=== PATIENT | female | born 1985 | race Caucasian/White ===

== ENCOUNTER 2020-12-12 11:20 | Outpatient (REF) | payer OTHER, SELFPAY ==
--- NOTE | 2020-12-12 11:27 | XR_ITS ---
EXAMINATION: XR CHEST CLINICAL INFORMATION: Cough COMPARISON: Previous chest x-ray June 2012 TECHNIQUE: 2 views of the chest were obtained. FINDINGS: The cardiac and mediastinal contours are stable. The lungs are clear. There is no pleural effusion or pneumothorax. There is a thoracolumbar scoliosis. XR/XR chest 2V IMPRESSION: No evidence for acute disease in the chest.
== END 2020-12-12 11:21 | disposition home or self-care (01) ==
LOC: HO.XRAY 11:20
PROVIDERS: PCP Internal Medicine; Visit Provider Internal Medicine
DX: R05 Cough (principal)
CPT/HCPCS: 71046

== ENCOUNTER 2021-03-06 16:05 | Outpatient (REF) | payer OTHER, SELFPAY ==
[2021-03-09 00:07] LABS: TS Negative Control Passed; TS Panel A 0; TS Panel B 2; TS Positive Control Passed; TSpotTB Negative (SeeBelow)
== END 2021-03-06 16:06 | disposition home or self-care (01) ==
LOC: HO.LAB 16:05
PROVIDERS: PCP Internal Medicine; Visit Provider Internal Medicine
DX: Z11.1 Encounter for screening for respiratory tuberculosis (principal); Z20.820 Contact with and (suspected) exposure to varicella
CPT/HCPCS: 36415; 86481; 86787

== ENCOUNTER 2021-04-21 15:05 | Outpatient (REF) | payer OTHER, SELFPAY ==
[2021-04-21 16:51] LABS: MANUAL DIFF FLAG NO
[2021-04-21 16:54] LABS: Basophils Absolute Auto 0.1 X10*3/uL (0.0-0.2); Basophils Percent Auto 0.4 % (0-2); Eosinophils Absolute Auto 0.2 X10*3/uL (0.0-0.4); Eosinophils Percent Auto 1.8 % (0-4); Hematocrit 30.2 % (37-47); Hemoglobin 9.2 g/dl (12.0-16.0); Imm Gran Abs Auto 0.08 X10*3/uL (0.00-0.03); Imm Gran Pct Auto 0.6 % (0.0-0.4); Lymphocytes Absolute Auto 1.6 X10*3/uL (1.2-4.9); Mean Corpuscular HGB Conc 30.5 g/dl (31.0-35.0); Mean Corpuscular Hemoglobin 25.7 pg (27.0-33.0); Mean Corpuscular Volume 84.4 fL (80-98); Monocytes Absolute Auto 1.4 X10*3/uL (0.1-1.2); Neutrophils Absolute Auto 9.6 X10*3/uL (2.0-8.3); Neutrophils Percent Auto 74.2 % (45-73); Platelet Count 644 X10*3/uL (160-400); Red Blood Count 3.58 X10*6/uL (4.20-5.50); Red Cell Distribution Width 15.9 % (11.0-16.0); White Blood Count 12.9 X10*3/uL (4.8-10.8)
== END 2021-04-21 15:06 | disposition home or self-care (01) ==
LOC: HO.LAB 15:05
PROVIDERS: PCP Internal Medicine; Visit Provider Internal Medicine
DX: Z00.00 Encounter for general adult medical examination without abnormal findings (principal)
CPT/HCPCS: 36415; 85025

== ENCOUNTER → 2021-07-07 11:21 | Outpatient (BNVA) | payer OTHER, SELFPAY | PROVIDERS: PCP Internal Medicine; Visit Provider Advanced Practice Midwife ==

== ENCOUNTER 2021-07-14 07:59 | Outpatient (REF) | payer OTHER, SELFPAY | END 2021-07-14 08:00 | disposition home or self-care (01) | LOC: HO.MDS 07:59 | PROVIDERS: PCP Internal Medicine; Visit Provider Internal Medicine Medical Oncology | DX: D50.9 Iron deficiency anemia, unspecified (principal) | CPT/HCPCS: 96365 ==

== ENCOUNTER 2021-07-14 10:23 | Outpatient (REF) | payer OTHER, SELFPAY ==
--- NOTE | ~2021-07-14 | US_ITS ---
EXAMINATION: US PELVIS CLINICAL INFORMATION: This is a 36-year-old female with abnormal uterine bleeding. COMPARISON: Comparison is made to a previous study dated 09/08/2014. TECHNIQUE: Ultrasound of the pelvis is performed using both transabdominal and transvaginal transducers along with Doppler. Transvaginal imaging is performed due to inadequate visualization transabdominally. FINDINGS: Uterus: The uterus is anteverted and measures 9.3 x 5.5 x 5.2 cm. The uterus appears anteverted and anteflexed. The double wall endometrial thickness is 0.7 mm. There are multiple smoothly marginated, noncalcified, nonshadowing hypoechoic masses within the uterus consistent with uterine fibroids. 1. In the mid posterior wall measuring 0.9 x 1.0 x 0.8 cm is a probable fibroid. This may have a submucosal component. This one may have been present previously and measured 0.8 cm. 2. In the posterior fundus measuring 3.9 x 3.2 x 4.1 cm is a probable fibroid. This was on the previous study and measured 1.6 x 2.0 x 2.1 cm. There is an abnormal echogenic area within the central cervix which measures 0.8 x 0.7 x 0.8 cm. There is posterior shadowing from this area. The etiology for this abnormality is unclear. This has unusual features to suggest a uterine fibroid and less it is calcified. This was not present on the previous study. Adnexa: Both ovaries are visualized. There is normal color flow to the adnexa. There is no ovarian torsion. There is no pelvic ascites or fluid collection. Right ovary measures 3.0 x 2.0 x 2.7 cm. 8.5 Left ovary measures 2.8 x 1.8 x 2.4 cm. 6.7 US/US pelvic and transvaginal IMPRESSION: 1. There are multiple probable fibroids in the posterior wall of the uterus as described. 2. Normal ovaries. 3. There is an abnormal echogenic area with posterior shadowing in the cervix with a maximum diameter of 0.8 cm. The etiology for this abnormality is unclear. Clinical correlation is recommended.
[2021-07-14 12:42] LABS: Thyroid Stimulating Hormone 0.64 uIU/mL (0.32-4.0)
== END 2021-07-14 10:24 | disposition home or self-care (01) ==
LOC: HO.HMGCX 10:23
PROVIDERS: PCP Internal Medicine; Visit Provider Advanced Practice Midwife
DX: N92.1 Excessive and frequent menstruation with irregular cycle (principal); N93.9 Abnormal uterine and vaginal bleeding, unspecified
CPT/HCPCS: 36415; 76830; 76856; 84443

== ENCOUNTER 2021-07-21 12:43 | Outpatient (REF) | payer OTHER, SELFPAY | END 2021-07-21 12:44 | disposition home or self-care (01) | LOC: HO.MDS 12:43 | PROVIDERS: PCP Internal Medicine; Visit Provider Internal Medicine Medical Oncology | DX: D50.9 Iron deficiency anemia, unspecified (principal) | CPT/HCPCS: 96365; J2916 ==

== ENCOUNTER 2021-07-28 13:57 | Outpatient (REF) | payer OTHER, SELFPAY | END 2021-07-28 13:58 | disposition home or self-care (01) | LOC: HO.MDS 13:57 | PROVIDERS: PCP Internal Medicine; Visit Provider Internal Medicine Medical Oncology | DX: D50.9 Iron deficiency anemia, unspecified (principal) | CPT/HCPCS: 96365; J2916 ==

== ENCOUNTER 2021-08-04 12:59 | Outpatient (REF) | payer OTHER, SELFPAY ==
[2021-08-04 13:56] LABS: MANUAL DIFF FLAG NO
[2021-08-04 14:00] LABS: Basophils Percent Auto 0.4 % (0-2); Eosinophils Absolute Auto 0.4 X10*3/uL (0.0-0.4); Eosinophils Percent Auto 3.3 % (0-4); Hematocrit 37.9 % (37-47); Hemoglobin 11.5 g/dl (12.0-16.0); Imm Gran Abs Auto 0.03 X10*3/uL (0.00-0.03); Imm Gran Pct Auto 0.3 % (0.0-0.4); Lymphocytes Absolute Auto 1.6 X10*3/uL (1.2-4.9); Lymphocytes Percent Auto 14.6 % (20-40); Mean Corpuscular HGB Conc 30.3 g/dl (31.0-35.0); Mean Corpuscular Hemoglobin 23.9 pg (27.0-33.0); Mean Corpuscular Volume 78.8 fL (80-98); Mean Platelet Volume 10.1 fL (9.4-12.3); Monocytes Absolute Auto 0.8 X10*3/uL (0.1-1.2); Monocytes Percent Auto 7.1 % (2-11); Neutrophils Absolute Auto 8.2 X10*3/uL (2.0-8.3); Neutrophils Percent Auto 74.3 % (45-73); Platelet Count 305 X10*3/uL (160-400); Red Blood Count 4.81 X10*6/uL (4.20-5.50); Red Cell Distribution Width 20.3 % (11.0-16.0); White Blood Count 11.1 X10*3/uL (4.8-10.8)
== END 2021-08-04 13:00 | disposition home or self-care (01) ==
LOC: HO.MDS 12:59
PROVIDERS: PCP Internal Medicine; Visit Provider Internal Medicine Medical Oncology
DX: D50.9 Iron deficiency anemia, unspecified (principal)
CPT/HCPCS: 36415; 85025; 96365; J2916

== ENCOUNTER 2021-08-11 09:37 | Outpatient (REF) | payer OTHER, SELFPAY ==
[2021-08-11 16:16] LABS: CT PCR NOT DETECTED (Not Detect.); NG PCR NOT DETECTED (Not Detect.)
[2021-08-12 15:22] LABS: BV Int Neg Control Negative (Negative)
[2021-08-12 15:23] LABS: BV Int Pos Control Positive (Positive)
[2021-08-16 08:21] LABS: HPV mRNA E6/E7 rflx Not Detected (Not Detected)
== END 2021-08-11 09:38 | disposition home or self-care (01) ==
LOC: HO.LAB 09:37
PROVIDERS: PCP Internal Medicine; Visit Provider Advanced Practice Midwife
DX: Z01.411 Encounter for gynecological examination (general) (routine) with abnormal findings (principal); Z11.51 Encounter for screening for human papillomavirus (HPV); Z11.3 Encounter for screening for infections with a predominantly sexual mode of transmission; N93.9 Abnormal uterine and vaginal bleeding, unspecified; N88.9 Noninflammatory disorder of cervix uteri, unspecified; Z71.2 Person consulting for explanation of examination or test findings
CPT/HCPCS: 58100; 87480; 87491; 87510; 87591; 87624; 87660; 88142; 88305

== ENCOUNTER → 2021-08-23 11:43 | Outpatient (BNVA) | payer OTHER, SELFPAY | PROVIDERS: PCP Internal Medicine; Visit Provider Advanced Practice Midwife ==

== ENCOUNTER 2021-09-01 11:02 | Outpatient (REF) | payer OTHER, SELFPAY ==
--- NOTE | ~2021-09-01 | MR_ITS ---
EXAMINATION: MR PELVIS WITHOUT AND WITH CONTRAST CLINICAL INFORMATION: 36-year-old female with history of abnormal uterine bleeding. Abnormal finding of cervix on ultrasound. Uterine fibroids on ultrasound. COMPARISON: Pelvic ultrasound from 07/14/2021. TECHNIQUE: MR imaging of the pelvis was performed using standard sequences on a high-field 1.5 Christine magnet without and with intravenous administration of 9 mL Gadavist. FINDINGS: Uterus and cervix: The anteflexed, anteverted uterus measures 10 x 5.9 x 7 cm (cervix to fundus x AP x transverse dimensions). The endometrium is normal; it measures up to 0.8 cm AP. No evidence of endometrial or endocervical polyp. Multiple small cystic foci are present within the junctional zone. In the region of the posterior uterine body and fundus, the junctional zone is especially thickened (measures up to 2.6 cm maximum thickness), consistent with uterine adenomyosis. No evidence of cervical or vaginal mass. Adnexa: The ovaries are normal. Normal-sized follicles are present within each ovary. No cystic or solid ovarian lesion. Free fluid: Trace free fluid is present in the pelvis. Genitourinary: No hydroureteronephrosis. The urinary bladder and urethra are normal. Gastrointestinal: No dilated bowel loops. No inflammatory change or obstruction of the visualized bowel. The rectum is unremarkable. Abdominal wall: There appears to be postoperative scarring of the partially visualized lower abdominal wall. Lymphovascular: Unremarkable. No pathologic sized lymph nodes. Skeletal: Mild loss of height and T2 signal of the degenerated L5-S1 disc with small central disc protrusion. The visualized pelvic bones and proximal femurs have normal marrow signal. No suspicious bone lesion. No osteonecrosis. The sacroiliac joints are normal. The musculotendinous structures are unremarkable. MR/MR pelvis wo/w con IMPRESSION: * There is uterine adenomyosis. * No evidence of uterine leiomyomas. * The endometrium is normal. No evidence of endometrial or endocervical polyp. * The ovaries are normal. No evidence of endometriosis or ovarian cyst.
== END 2021-09-01 11:03 | disposition home or self-care (01) ==
LOC: HO.MRI 11:02
PROVIDERS: PCP Internal Medicine; Visit Provider Advanced Practice Midwife
DX: N88.9 Noninflammatory disorder of cervix uteri, unspecified (principal); N93.9 Abnormal uterine and vaginal bleeding, unspecified
CPT/HCPCS: 72197; A9585

== ENCOUNTER → 2021-09-12 11:20 | Outpatient (BNVA) | payer OTHER, SELFPAY | PROVIDERS: PCP Internal Medicine; Visit Provider Advanced Practice Midwife ==

== ENCOUNTER → 2021-11-15 08:59 | Outpatient (BNVA) | payer OTHER, SELFPAY | PROVIDERS: PCP Internal Medicine; Referring Provider Internal Medicine; Visit Provider Surgery | DX: R19.00 Intra-abdominal and pelvic swelling, mass and lump, unspecified site (principal) | CPT/HCPCS: 99202 ==

== ENCOUNTER → 2021-12-08 11:35 | Outpatient (BNVA) | payer OTHER, SELFPAY | PROVIDERS: PCP Internal Medicine; Visit Provider Advanced Practice Midwife ==

== ENCOUNTER → 2022-01-16 08:08 | Outpatient (BNVA) | payer OTHER, SELFPAY | PROVIDERS: Visit Provider Obstetrics & Gynecology | DX: N88.9 Noninflammatory disorder of cervix uteri, unspecified (principal); N93.9 Abnormal uterine and vaginal bleeding, unspecified | CPT/HCPCS: 99212 ==

== ENCOUNTER 2022-04-12 13:56 | Outpatient (REF) | payer OTHER, SELFPAY | END 2022-04-12 13:57 | disposition home or self-care (01) | LOC: HO.MDS 13:56 | PROVIDERS: PCP Internal Medicine; Visit Provider Internal Medicine Medical Oncology | DX: D50.9 Iron deficiency anemia, unspecified (principal); N80.0 Endometriosis of uterus | CPT/HCPCS: 96365; J2916 ==

== ENCOUNTER 2022-04-18 12:06 | Outpatient (REF) | payer OTHER, SELFPAY | END 2022-04-18 12:07 | disposition home or self-care (01) | LOC: HO.MDS 12:06 | PROVIDERS: PCP Internal Medicine; Visit Provider Internal Medicine Medical Oncology | DX: D50.9 Iron deficiency anemia, unspecified (principal) | CPT/HCPCS: 96365; J2916 ==

== ENCOUNTER → 2022-04-25 13:23 | Outpatient (BNVA) | payer OTHER, SELFPAY | PROVIDERS: PCP Internal Medicine; Visit Provider Advanced Practice Midwife | DX: Z30.09 Encounter for other general counseling and advice on contraception (principal); N92.0 Excessive and frequent menstruation with regular cycle | CPT/HCPCS: 99212 ==

== ENCOUNTER 2022-04-26 10:24 | Outpatient (REF) | payer OTHER, SELFPAY | END 2022-04-26 10:25 | disposition home or self-care (01) | LOC: HO.MDS 10:24 | PROVIDERS: PCP Internal Medicine; Visit Provider Internal Medicine Medical Oncology | DX: D50.9 Iron deficiency anemia, unspecified (principal) | CPT/HCPCS: 96365; J2916 ==

== ENCOUNTER 2022-05-03 10:06 | Outpatient (REF) | payer OTHER, SELFPAY ==
[2022-05-03 11:13] LABS: MANUAL DIFF FLAG NO
[2022-05-03 11:14] LABS: Basophils Percent Auto 0.5 % (0-2); Eosinophils Absolute Auto 0.3 X10*3/uL (0.0-0.4); Eosinophils Percent Auto 5.4 % (0-4); Hematocrit 40.4 % (37.0-47.0); Hemoglobin 12.5 g/dl (12.0-16.0); Imm Gran Abs Auto 0.01 X10*3/uL (0.00-0.03); Imm Gran Pct Auto 0.2 % (0.0-0.4); Lymphocytes Absolute Auto 2.5 X10*3/uL (1.2-4.9); Lymphocytes Percent Auto 40.4 % (20-40); Mean Corpuscular HGB Conc 30.9 g/dl (31.0-35.0); Mean Corpuscular Hemoglobin 26.7 pg (27.0-33.0); Mean Corpuscular Volume 86.3 fL (80.0-98.0); Monocytes Absolute Auto 0.5 X10*3/uL (0.1-1.2); Monocytes Percent Auto 7.6 % (2-11); Neutrophils Absolute Auto 2.8 x10*3/uL (2.0-8.3); Neutrophils Percent Auto 45.9 % (45-73); Platelet Count 256 X10*3/uL (160-400); Red Blood Count 4.68 X10*6/uL (4.20-5.50); Red Cell Distribution Width 14.5 % (11.0-16.0); White Blood Count 6.2 X10*3/uL (4.8-10.8)
== END 2022-05-03 10:07 | disposition home or self-care (01) ==
LOC: HO.MDS 10:06
PROVIDERS: PCP Internal Medicine; Visit Provider Internal Medicine Medical Oncology
DX: D50.9 Iron deficiency anemia, unspecified (principal)
CPT/HCPCS: 36415; 85025; 96365; J2916

== ENCOUNTER 2022-07-13 14:03 | Outpatient (REF) | payer OTHER, SELFPAY ==
[2022-07-13 21:35] LABS: CT PCR NOT DETECTED (Not Detect.); NG PCR NOT DETECTED (Not Detect.)
== END 2022-07-13 14:04 | disposition home or self-care (01) ==
LOC: HO.LAB 14:03
PROVIDERS: Visit Provider Advanced Practice Midwife
DX: Z30.430 Encounter for insertion of intrauterine contraceptive device (principal); N93.9 Abnormal uterine and vaginal bleeding, unspecified
CPT/HCPCS: 58300; 87491; 87591; J7298

== ENCOUNTER 2022-08-02 08:17 | Emergency (ER) | payer OTHER, SELFPAY ==
[2022-08-02 08:19] VITALS: BP 137/76; PULSE 91; RESP 18; TEMP 36.9; O2SAT 100; BMI 31.6
--- NOTE | 2022-08-02 08:41 | ED.SKABFB ---
HPI - Skin/Abscess/Foreign Bdy General Chief complaint: Skin/Abscess/Foreign Body Stated complaint: Cyst on belly button Time Seen by Provider: 08/02/22 08:27 Source: patient Mode of arrival: ambulatory Limitations: no limitations History of Present Illness HPI narrative: 37 yo female with hx of abdominoplasty 1 year ago prior infected seroma that drained on its own and responded to abx. She had this done in [place]. Comes in noting pustule in belly button and erythema above umbilicus. No fevers, vomiting. MD complaint: rash, abscess/boil and lesion Onset (ago): day(s) (1) Tetanus up to date: yes Location: generalized (abdomen) Severity: mild Quality: dull Relieving factors: none Exacerbating factors: palpation Context: other (hx of similar episodes in past) Associated symptoms: denies other symptoms Treatments prior to arrival: none Related Data Previous Rx's Medication Instructions Recorded diphenhydramine HCl 25 mg capsule 25 mg PO BEDTIME #60 caps 09/11/21 (Benadryl) albuterol sulfate 90 mcg/actuation 2 puff inhalation Q4-6H PRN 01/01/22 aerosol inhaler (Ventolin HFA) shortness of breath or wheezing #8.5 grams cromolyn 4 % eye drops 1 drp ophthalmic (eye) QID PRN 02/27/22 itching #10 mL tobramycin 0.3 % eye drops (Tobrex) 1 drp ophthalmic (eye) Q4H #5 mL 05/02/22 fluticasone propionate 44 1 puff inhalation BID 30 days 06/25/22 mcg/actuation HFA aerosol inhaler #10.6 grams (Flovent HFA) fluticasone propionate 50 1 spray intranasal DAILY #100 mL 06/25/22 mcg/actuation nasal spray,suspension (Flonase Allergy Relief) cetirizine 10 mg tablet (Zyrtec) 10 mg PO DAILY PRN allergy 07/09/22 symptoms #30 tabs cephalexin 500 mg capsule 500 mg PO TID 7 days #21 caps 08/02/22 doxycycline monohydrate 100 mg 100 mg PO BID 7 days #14 tabs 08/02/22 tablet Allergies Allergy/AdvReac Type Severity Reaction Status Date / Time eggplant [EGGPLANT] Allergy Severe HIVES Verified 07/13/22 13:44 latex [LATEX] Allergy Intermediate RASH Verified 07/13/22 13:44 Review of Systems Review of Systems: Constitutional : No Fever, No Chills ENT/Mouth : No sore throat, No Rhinorrhea Eyes: No Eye Pain, No Swelling, No Redness Cardiovascular : No Chest Pain, No SOB Respiratory : No Cough, No Sputum Gastrointestinal : No Nausea, No Vomiting, No Diarrhea, No abdominal Pain Genitourinary : No Dysuria, No Hematuria Musculoskeletal : No joint pain, No Myalgias, No Joint Swelling Skin : No Skin Lesions, positive skin rash Neuro : No Weakness, No Numbness, No Headache PMFSH Past Medical History Attestation statement: The following information was validated with the patient. Medical History Adenomyosis of uterus Anemia Asthma Elevated BP without diagnosis of hypertension Obesity Obesity Surgical History History of abdominoplasty History of tubal ligation Family History Family History Mother Diabetes High cholesterol Hypertension Father No problems noted. Son High cholesterol Social History Social History Household Members: Children Housing: House Are you a primary physician assistant primary care to a significant other at home: No Do you presently have visiting nurse or other home services: No Alcohol intake: current Alcohol intake frequency: holidays/special occasions only Patient Tobacco Use Status: Former Tobacco user Tobacco use type: Cigarette e-Cigarette/Vaping Use: Never Used Second Hand Smoke Exposure: No Advance Directives: No service: No Current occupational status: employed Current occupation: [employer] [place] Cognitive needs: No Hearing needs: No Vision needs: Yes Physical Exam Vital Signs: Vital Signs: Last Vital Signs Temp 98.4 F 08/02/22 08:19 Pulse 91 08/02/22 08:19 Resp 18 08/02/22 08:19 BP 137/76 08/02/22 08:19 Pulse Ox 100 08/02/22 08:19 O2 Del Method 08/02/22 08:19 BMI result Body Mass Index 31.6 Appearance: Alert. Oriented X3. No acute distress. Eyes: Pupils equal, round and reactive to light. ENT: Pharynx normal. Neck: Normal inspection. Neck supple. CVS: Normal heart rate and rhythm. Pulses normal. Respiratory: No respiratory distress. Breath sounds normal. Abdomen: Soft and non-tender. small 1cm pustule to a point in umbilicus erythema above belly button very mild Skin: Skin warm and dry. Normal skin color. Normal skin turgor. Extremities: No lower extremity edema. Neuro: Oriented X 3. No motor deficit. No sensory deficit. Course Course Course Narrative: abscess that she popped herself in the ED - patient expressed it herself and wants to leave MDM - Skin/Abscess/Foreign Bdy MDM Narrative Medical decision making narrative: 37 yo female prior abdominoplasty here with c/o pustule in abdomen along with mild erythema above area will start on oral abx and wolfgang pustule suspect another seroma with mild infectino has no systemic symptoms. Can monitor at home, has done well in past with similar presentation with oral antibiotics. Discharge Plan Discharge Clinical Impression: Cellulitis Qualifiers: Site of cellulitis: trunk Site of cellulitis of trunk: abdominal wall Qualified Code(s): L03.311 - Cellulitis of abdominal wall Abscess of skin or subcutaneous tissue Qualifiers: Site of cutaneous abscess: trunk Site of cutaneous abscess of trunk: abdominal wall Qualified Code(s): L02.211 - Cutaneous abscess of abdominal wall Patient Disposition: Home, Self-Care Instructions: Cellulitis (ED), Abscess (ED) Additional Instructions: return to ED for any worsening symptoms or concerns return if no improvemet, fevers, increased redness or swelling Prescriptions: New cephalexin 500 mg capsule 500 mg PO TID 7 Days Qty: 21 0RF doxycycline monohydrate 100 mg tablet 100 mg PO BID 7 Days Qty: 14 0RF No Action diphenhydramine HCl [Benadryl] 25 mg capsule 25 mg PO BEDTIME Qty: 60 1RF albuterol sulfate [Ventolin HFA] 90 mcg/actuation HFA aerosol inhaler 2 puff inhalation Q4-6H PRN (Reason: shortness of breath or wheezing) Qty: 8.5 8RF cromolyn 4 % drops 1 drp ophthalmic (eye) QID PRN (Reason: itching) Qty: 10 0RF tobramycin [Tobrex] 0.3 % drops 1 drp ophthalmic (eye) Q4H Qty: 5 0RF fluticasone propionate [Flonase Allergy Relief] 50 mcg/actuation spray,suspension 1 spray intranasal DAILY Qty: 100 0RF Rx Instructions: administer into each nostril Flovent HFA 44 mcg/actuation HFA aerosol inhaler 1 puff inhalation BID 30 Days Qty: 10.6 2RF Rx Instructions: administer with spacer cetirizine [Zyrtec] 10 mg tablet 10 mg PO DAILY PRN (Reason: allergy symptoms) Qty: 30 2RF Stand Alone Forms: Work/School Release
[2022-08-02] MEDS: Lidocaine 4 % Cream KIT 1 APPL TOPICAL (09:16)
[2022-08-02] MEDS: Ondansetron ODT 4 MG TAB.RAPDIS TRANSLINGU (09:16)
[2022-08-02] MEDS: cephALEXin 500 MG CAPSULE PO (09:19)
== END 2022-08-02 11:15 | disposition home or self-care (01) ==
PROVIDERS: Emergency Provider Emergency Medicine; PCP Internal Medicine
DX: L03.311 Cellulitis of abdominal wall (principal); L02.211 Cutaneous abscess of abdominal wall; Z87.891 Personal history of nicotine dependence; Z79.899 Other long term (current) drug therapy
CPT/HCPCS: 99283

== ENCOUNTER → 2022-09-17 15:26 | Outpatient (BNVA) | payer OTHER, SELFPAY | PROVIDERS: PCP Internal Medicine; Visit Provider Internal Medicine | DX: J45.909 Unspecified asthma, uncomplicated (principal) | CPT/HCPCS: 99202 ==

== ENCOUNTER → 2022-10-03 10:42 | Outpatient (BNVA) | payer OTHER, SELFPAY | PROVIDERS: PCP Internal Medicine; Visit Provider Advanced Practice Midwife | DX: Z30.431 Encounter for routine checking of intrauterine contraceptive device (principal) | CPT/HCPCS: 99212 ==

== ENCOUNTER 2022-10-07 10:55 | Emergency (ER) | payer OTHER, SELFPAY ==
--- NOTE | 2022-10-07 11:17 | ED.BACK ---
HPI - Back Pain/Injury General Chief Complaint: Back Pain/Injury Stated Complaint: Back pain Time Seen by Provider: 10/07/22 11:16 Source: patient Mode of arrival: ambulatory Limitations: no limitations History of Present Illness HPI Narrative: 37 yo female with history of anemia, asthma, allergic rhinitis, obesity who presents to the ER for evaluation of right lower back pain that started yesterday. She reports the pain is in her right lower back and buttocks that radiates to her right hip and pelvis, it also radiates down her right buttock and down her leg. She had also has tingling of her leg as well. She denies any bowel or bladder incontinence. No saddle paresthesias. No injury or fall. She has never had pain like this before. She states it started when she was sitting on the couch watching Netflix. It is worse with position changes and palpation. She has taken Motrin with improvement in the pain. MD elicited complaint: back pain Onset (ago): day(s) (1) Timing: constant Severity: severe Similar Symptoms Previously: No Quality: sharp and spasming Location: right lower back Radiation: groin, buttocks and right upper leg Exacerbating factors: movement Relieving factors: immobilization, medication and sitting upright Context: unknown Associated symptoms: parasthesias Treatments prior to arrival: NSAIDS Work related injury: No Related Data Home Medications Medication Instructions Recorded Confirmed levonorgestrel 20 mcg/24 hours (8 0 device intrauterine 09/17/22 yrs) 52 mg intrauterine device (Mirena) prednisolone acetate 1 % eye 1 drp ophthalmic (eye) BID 09/17/22 10/04/22 drops,suspension Previous Rx's Medication Instructions Recorded diphenhydramine HCl 25 mg capsule 25 mg PO BEDTIME #60 caps 09/11/21 (Benadryl) fluticasone propionate 44 1 puff inhalation BID 30 days 06/25/22 mcg/actuation HFA aerosol inhaler #10.6 grams (Flovent HFA) fluticasone propionate 50 1 spray intranasal DAILY #100 mL 06/25/22 mcg/actuation nasal spray,suspension (Flonase Allergy Relief) cetirizine 10 mg tablet (Zyrtec) 10 mg PO DAILY PRN allergy 08/27/22 symptoms #30 tabs albuterol sulfate 90 mcg/actuation 2 puff inhalation Q4-6H PRN 09/10/22 aerosol inhaler (Ventolin HFA) shortness of breath or wheezing #8.5 grams montelukast 10 mg tablet 10 mg PO BEDTIME #30 tabs 09/19/22 (Singulair) cyclobenzaprine 10 mg tablet 10 mg PO TID PRN muscle spasm #14 10/07/22 tabs lidocaine 5 % topical patch 1 patch topical DAILY #15 ea 10/07/22 prednisone 20 mg tablet 40 mg PO DAILY #10 tabs 10/07/22 Allergies Allergy/AdvReac Type Severity Reaction Status Date / Time eggplant [EGGPLANT] Allergy Severe HIVES Verified 10/03/22 10:53 latex [LATEX] Allergy Intermediate RASH Verified 10/03/22 10:53 Review of Systems Review of Systems: Constitutional: No Fever, No Chills ENT/Mouth: No sore throat, No Rhinorrhea Cardiovascular: No Chest Pain, No SOB Respiratory: No Cough, No Sputum Gastrointestinal: No Nausea, No Vomiting, No Diarrhea, No abdominal Pain Genitourinary: No Dysuria, No Urinary Frequency, No Hematuria, no urinary incontinence Musculoskeletal: + joint pain, +Myalgias Skin: No Skin Lesions, No rash Neuro: No Weakness, No Numbness, No Dizziness, No Headache Heme/Lymph: No Bruising, No Lymphadenopathy PMFSH Past Medical History Medical History Adenomyosis of uterus Anemia Asthma Asthma Elevated BP without diagnosis of hypertension Obesity Obesity Surgical History History of abdominoplasty History of tubal ligation Family History Family History Mother Diabetes High cholesterol Hypertension Father No problems noted. Son High cholesterol Social History Social History Household Members: Children Housing: House Are you a primary manager urgent care to a significant other at home: No Do you presently have visiting nurse or other home services: No Alcohol intake: current Alcohol intake frequency: holidays/special occasions only Patient Tobacco Use Status: Former Tobacco user Tobacco use type: Cigarette e-Cigarette/Vaping Use: Never Used Second Hand Smoke Exposure: No Advance Directives: No Advance Directives Information Provided: No service: No Current occupational status: employed Current [place]: [employer] [place] Cognitive needs: No Hearing needs: No Vision needs: Yes Physical Exam Vital Signs: Vital Signs: Last Vital Signs Temp 98.2 F 10/07/22 11:25 Pulse 83 10/07/22 11:25 Resp 14 10/07/22 11:25 BP 113/63 10/07/22 11:25 Pulse Ox 96 10/07/22 11:25 O2 Del Method 10/07/22 11:25 BMI result Body Mass Index 29.9 Appearance: Alert. Oriented X3. No acute distress. HEENT: normal inspection CVS: Normal heart rate and rhythm. Pulses normal. Respiratory: No respiratory distress. Skin: Skin warm and dry. Normal skin color. Normal skin turgor. No rashes. Back: Normal inspection. Soft tissue tenderness of the middle and lower lumbar area with SI joint tenderness as well. Positive straight leg raise test. Extremities: Normal inspection, normal range of motion of the hips and knees. Neuro: Oriented X 3. No motor deficit. No sensory deficit. Steady gait. DTRs intact Course Course Course Narrative: 37-year-old female presenting to the ER with nontraumatic right lower back pain that radiates to her groin, buttocks and right leg. Clinical exam and presentation are consistent with lumbar radiculopathy possible muscle strain and spasm. Will treat accordingly with steroids, muscle relaxers and lidocaine. Will provide lower back exercises to help alleviate the pain as well. Work note provided per request. Stable for discharge home. She will follow-up with her PCP for further management. Discharge Plan Discharge Clinical Impression: Low back pain, Acute lumbar radiculopathy Patient Disposition: Home, Self-Care Instructions: Lumbar Radiculopathy (ED), Lower Back Exercises (ED) Additional Instructions: No bending, lifting or twisting. Use ice several times per day for 20 minutes at a time for the next 48 hours and then change to heat. Take medications as prescribed to help with pain and discomfort. Follow up with your Primary Care Doctor this week. If your pain worsens, if you develop new numbness, tingling, weakness, loss of function or incontinence call 911 or come back to the ER right away for evaluation. Prescriptions: New cyclobenzaprine 10 mg tablet 10 mg PO TID PRN (Reason: muscle spasm) Qty: 14 0RF lidocaine 5 % adhesive patch,medicated 1 patch topical DAILY Qty: 15 0RF Rx Instructions: leave on most painful area for up to 12 hrs prednisone 20 mg tablet 40 mg PO DAILY Qty: 10 0RF No Action diphenhydramine HCl [Benadryl] 25 mg capsule 25 mg PO BEDTIME Qty: 60 1RF fluticasone propionate [Flonase Allergy Relief] 50 mcg/actuation spray,suspension 1 spray intranasal DAILY Qty: 100 0RF Rx Instructions: administer into each nostril Flovent HFA 44 mcg/actuation HFA aerosol inhaler 1 puff inhalation BID 30 Days Qty: 10.6 2RF Rx Instructions: administer with spacer cetirizine [Zyrtec] 10 mg tablet 10 mg PO DAILY PRN (Reason: allergy symptoms) Qty: 30 2RF albuterol sulfate [Ventolin HFA] 90 mcg/actuation HFA aerosol inhaler 2 puff inhalation Q4-6H PRN (Reason: shortness of breath or wheezing) Qty: 8.5 0RF montelukast [Singulair] 10 mg tablet 10 mg PO BEDTIME Qty: 30 2RF prednisolone acetate 1 % drops,suspension 1 drp ophthalmic (eye) BID Mirena 20 mcg/24 hours (8 yrs) 52 mg intrauterine device 0 device intrauterine Referrals: Osmany Grimes MD [Primary Care Provider] - Stand Alone Forms: Work/School Release
[2022-10-07 11:25] VITALS: BP 113/63; PULSE 83; RESP 14; TEMP 36.8; O2SAT 96; BMI 29.9
== END 2022-10-07 11:47 | disposition home or self-care (01) ==
PROVIDERS: Emergency Provider Emergency Medicine Emergency Medical Services; PCP Internal Medicine
DX: M54.16 Radiculopathy, lumbar region (principal); Z87.891 Personal history of nicotine dependence; Z79.899 Other long term (current) drug therapy
CPT/HCPCS: 99282; 99283

== ENCOUNTER 2022-10-08 14:51 | Outpatient (REF) | payer OTHER, SELFPAY ==
--- NOTE | 2022-10-08 17:14 | PFT_ITS ---
INDICATION: Dyspnea. SPIROMETRY: The FEV1 to FVC of 72% with an FEV1 of 2.27 L, which is 70% predicted and an FVC of 3.16 L, which is 82% predicted. The patient did have a significant response to bronchodilators noted. There was also significant small airways disease with a [id number] of 41% predicted. The maximum voluntary ventilation is 68% predicted. LUNG VOLUMES: Total lung capacity 91% predicted with a residual volume 127% predicted. DIFFUSION CAPACITY: DLCO 100% predicted. COMPARISONS: None. INTERPRETATION: No definitive obstructive nor restrictive ventilatory defects. Although on the flow volume loop, appears to have a concavity given the expiratory limb and a decreased FEV1 to FVC suggesting some obstructive physiology. The patient did have a significant response to bronchodilators noted and also significant small airways disease bring up the question of underlying asthma. There is also a mild to moderate decrease in maximum voluntary ventilation secondary to deconditioning and also worsening dynamic inspiratory capacity. Lung volumes show significant air trapping and diffusion capacity within normal limits. COMPARISONS: None. INTERPRETATION: There is an obstructive physiology suggestive of uncontrolled asthma or small airways disease with a significant response to bronchodilators noted. There is significant air trapping due to small airways disease and a normal diffusion capacity. Now if asthma is still in the differential, methacholine challenge may be helpful in assessing for hyper-reactive airways. Otherwise clinical correlation warranted. Trevon Angel MD MR/MODL / [id number]
== END 2022-10-08 14:52 | disposition home or self-care (01) ==
LOC: HO.RESP 14:51
PROVIDERS: PCP Internal Medicine; Visit Provider Internal Medicine
DX: J45.909 Unspecified asthma, uncomplicated (principal)
CPT/HCPCS: 94060; 94727; 94729

== ENCOUNTER → 2022-10-29 10:51 | Outpatient (BNVA) | payer OTHER, SELFPAY | PROVIDERS: PCP Internal Medicine; Visit Provider Internal Medicine | DX: J45.909 Unspecified asthma, uncomplicated (principal); J30.9 Allergic rhinitis, unspecified; Z79.899 Other long term (current) drug therapy | CPT/HCPCS: 99212 ==

== ENCOUNTER → 2023-02-28 15:39 | Outpatient (BNVA) | payer OTHER, SELFPAY | PROVIDERS: PCP Internal Medicine; Visit Provider Internal Medicine | DX: J45.909 Unspecified asthma, uncomplicated (principal) | CPT/HCPCS: 99212 ==

== ENCOUNTER 2023-08-29 15:51 | Outpatient (AMB) | payer OTHER, SELFPAY ==
[2023-08-29 15:58] VITALS: BP 120/68; PULSE 78; O2SAT 99
--- NOTE | 2023-08-29 15:58 | MHC.OFFVIS ---
Intake Vital Signs 08/29/23 15:58 Weight 184 lb 1.376 oz BP 120/68 Blood Pressure Location Lt brachial Position Sitting Pulse 78 Pulse Source Pulse Oximeter Pulse Oximetry (%) 99 Oxygen Delivery Method Room Air Intake Visit Reasons: Asthma Allergies eggplant [EGGPLANT] Allergy (Severe, Verified 08/29/23 16:02) HIVES latex [LATEX] Allergy (Intermediate, Verified 08/29/23 16:02) RASH eggs Allergy (Intermediate, Uncoded 08/29/23 16:02) abdominal pian Medication List - Last Reconciled 08/29/23 by Shahida Haines MD albuterol sulfate 90 mcg/actuation (Ventolin HFA) 2 puffs inhalation Q4-6H PRN cetirizine 10 mg PO DAILY PRN cyclobenzaprine 10 mg PO TID PRN fluticasone propionate 50 mcg/actuation (Flonase Allergy Relief) 1 spray intranasal DAILY fluticasone propionate 110 mcg/actuation (Flovent HFA) 2 puffs inhalation BID 30 days levonorgestrel (Mirena) 0 device intrauterine montelukast 10 mg PO BEDTIME Do you need a note to return to daycare/school/sports/work: No HPI Asthma HPI Details This 38 years old female is here for 6 months follow-up for her allergic rhinitis and bronchial asthma. She is doing very well on the current regimen. The only thing is her insurance would not cover Flovent and she is looking for an alternate agent. She still has cats at home but do not let them sleep in the bedroom. Nasal congestion is minimal. She hardly has any wheezes. [facility] Medical History Asthma Elevated BP without diagnosis of hypertension Obesity Adenomyosis of uterus Obesity Asthma Anemia Surgical History History of abdominoplasty History of tubal ligation Family History Mother Diabetes High cholesterol Hypertension Father No problems noted. 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 Cognitive needs: No Hearing needs: No Vision needs: Yes Female Reproductive History Menstrual Age of Menarche: 13 Review of Systems Const All systems reviewed & are unremarkable except as noted in HPI and below Eyes Reports no additional complaints ENT Reports nasal congestion and Reports nasal discharge Card Reports no additional complaints Resp Reports as per HPI GI Reports no additional complaints Reports no additional complaints Musc Reports no additional complaints Skin/Breast Reports system reviewed and no additional complaints, except as documented Neuro Reports no additional complaints Psych Reports no additional complaints Physical Exam Vital Signs: Last Vital Signs Pulse 78 08/29/23 15:58 BP 120/68 08/29/23 15:58 Pulse Ox 99 08/29/23 15:58 Oxygen Delivery Method Room Air 08/29/23 15:58 Const General: healthy appearing (Except for being overweight), comfortable, no acute distress, alert and awake Orientation/consciousness: patient oriented x3 HEENT Head: Yes normal to inspection General nose exam: No nasal polyps present, No nasal discharge present and Abnormal mucous membranes and turbinates present (As moderate hypertrophy of the inferior and middle turbinates) Face and sinus: Yes sinuses nontender Mouth: oropharynx normal Throat: Yes posterior oropharynx normal Eyes General: appearance normal, both eyes and all related structures Neck Neck: Yes normal visual inspection, Yes no lymphadenopathy, Yes trachea midline and Yes no JVD Thyroid: Thyroid normal Chest Chest palpation & inspection: normal inspection of the chest, normal palpation of entire chest wall and no tenderness Resp Other: Percussion note resonant. Has good breath sounds on both sides. There are no wheezes or crepitations. Cardio Palpation: normal PMI Rate: regular rate Rhythm: regular rhythm Heart sounds: no gallops and no murmurs Peripheral pulses: Peripheral pulses 2+ throughout GI Palpation (GI): Soft to palpation, nontender, No hepatosplenomegaly present and no masses Auscultation: normal bowel sounds Back/Spine/Pelvis Thoracic/Lumbar Spine: thoracic and lumbar spine normal to inspection Skin General skin exam: no rashes or lesions noted Neuro General: patient oriented x3 and no focal motor deficits Cranial nerves: Yes CN's II-XII intact bilaterally Extrem General: Yes normal to inspection, Yes no clubbing, cyanosis or edema and Yes no calf tenderness Psych Appearance: grossly normal and well kempt Speech and movement: Normal speech and movement present Assessment & Plan Assessment & Plan (1) Asthma: Comment: Bronchial asthma, mild to moderate, persistent, most likely allergic. One of the main triggers is domestic CATs . Patient educated about the management of bronchial asthma, Educated about avoidance of the triggers. TX : Flovent is changed to QVAR -40 2 puffs BID Continue MONTELUKAST 10 mg daily Use Proair 2 puffs Q 4-6 hours p.r.n., but sparingly. Code(s): J45.909 - Unspecified asthma, uncomplicated (2) Allergic rhinitis: Comment: Chronic allergic rhinitis, around the year , worsening with seasonal changes. TX : Continue Flonase 2 spray each nostril daily. Use Zyrtec 10 mg once a day p.r.n.. ( prescription sent ) Montelukast 10 mg daily Code(s): J30.9 - Allergic rhinitis, unspecified Medications: New beclomethasone dipropionate 40 mcg/actuation (Qvar RediHaler) 2 inhalations inhalation BID 10.6 grams 5RF asthma 30 days albuterol sulfate 90 mcg/actuation 2 puffs inhalation Q4-6H PRN 8.5 grams 3RF shortness of breath or wheezing 30 days Coding Level of Care Code Est Pt Level 3 (67519) Diagnoses Asthma J45.909 Allergic rhinitis J30.9
== END 2023-08-29 16:10 | disposition home or self-care (01) ==
PROVIDERS: PCP Internal Medicine; Visit Provider Internal Medicine
DX: J45.909 Unspecified asthma, uncomplicated (principal); J30.9 Allergic rhinitis, unspecified
CPT/HCPCS: 99213

== ENCOUNTER → 2023-08-29 15:51 | Outpatient (BNVA) | payer OTHER, SELFPAY | PROVIDERS: PCP Internal Medicine; Visit Provider Internal Medicine ==

== ENCOUNTER 2023-12-17 12:52 | Outpatient (AMB) | payer OTHER, SELFPAY ==
[2023-12-17 12:54] VITALS: BP 122/78; PULSE 80; O2SAT 99; BMI 30.4
--- NOTE | 2023-12-17 12:54 | MHC.PC.OV ---
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 per policy Accompanied by: Self / Same As Patient Allergies eggplant [EGGPLANT] Allergy (Severe, Verified 12/17/23 12:54) HIVES latex [LATEX] Allergy (Intermediate, Verified 12/17/23 12:54) RASH eggs Allergy (Intermediate, Uncoded 12/17/23 12:54) abdominal pian Medication List - Last Reconciled 12/17/23 by Osmany Grimes MD albuterol sulfate 90 mcg/actuation (Ventolin HFA) 2 puffs inhalation Q4-6H PRN albuterol sulfate 90 mcg/actuation 2 puffs inhalation Q4-6H PRN 30 days beclomethasone dipropionate 40 mcg/actuation (Qvar RediHaler) 2 inhalations inhalation BID 30 days cetirizine 10 mg PO DAILY PRN cyclobenzaprine 10 mg PO TID PRN fluticasone propionate 50 mcg/actuation (Flonase Allergy Relief) 1 spray intranasal DAILY fluticasone propionate 110 mcg/actuation (Flovent HFA) 2 puffs inhalation BID 30 days levonorgestrel (Mirena) 0 device intrauterine montelukast 10 mg PO BEDTIME Tobacco use date assessed: 12/17/23 Dental Screening Dental Screen Date: 12/17/23 Did you have a dental visit in the last 12 months?: Yes Did you have a dental problem in the last 6 months where you did not have access to dental care?: No Was dental information given to patient?: Patient has dentist HPI physical HPI Details mild asthma controlled [facility] Medical History Asthma Elevated BP without diagnosis of hypertension Obesity Adenomyosis of uterus Obesity Asthma Anemia Surgical History History of abdominoplasty History of tubal ligation Family History Mother Diabetes High cholesterol Hypertension Father No problems noted. 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 1. Little interest or pleasure in doing things: not at all 2. Feeling down, depressed, or hopeless: not at all 3. Trouble falling or staying asleep, or sleeping too much: not at all 4. Feeling tired or having little energy: not at all 5. Poor appetite or overeating: not at all 6. Feeling bad about yourself - or that you are a failure or have let yourself or your family down: not at all 7. Trouble concentrating on things, such as reading the newspaper or watching television: not at all 8. Moving or speaking so slowly that other people could have noticed. Or the opposite - being so fidgety or restless that you have been moving around a lot more than usual: not at all 9. Thoughts that you would be better off or of hurting yourself in some way: not at all Total score: 0 Depression Screening Interpretation: Negative Depression Screening Done: Yes 68139 - PHQ-9 Billing: Yes Source: Developed by Drs. Vikas Khan, Becky Carrion, Robert Hernandez and colleagues, with an educational caren from [employer]. Thrive Questionnaire Date Thrive assessed: 12/17/23 I am a: Patient What is your living situation today?: I have a steady place to live Within the past 12 months, did the food you bought not last and you didn't have the money to get more?: Never true Within the past 12 months, did you worry whether your food would run out before you got money to buy more?: Never true Do you have trouble paying for medicines?: No Do you have trouble getting transportation to medical appointments?: No Do you have trouble paying your heating and electricity bill?: No Do you have trouble taking care of your child, family member or friend?: No Do you have trouble with day-to-day activities such as bathing, preparing meals, shopping, managing finances, etc.?: No Are you currently unemployed and looking for a job?: No Are you interested in more education?: No Please select the resources that you would like help with: None THRIVE Score: 0 AUDIT C Alcohol Use Questionnaire (AUDIT-C) 1. How often do you have a drink containing alcohol?: Never Total Score: 0 MATEUSZ-7 AMB Questionnaire MATEUSZ-7 Date MATEUSZ - 7 assessed: 12/17/23 Feeling nervous, anxious, or on edge: 0 = Not at all Not being able to stop or control worryin = Not at all Worrying too much about different things: 0 = Not at all Trouble relaxin = Not at all Being so restless that it is hard to sit still: 0 = Not at all Becoming easily annoyed or irritable: 0 = Not at all Feeling afraid as if something awful might happen: 0 = Not at all Total AMTEUSZ-7 score (0-4 normal; 5-9 mild; 10-14 moderate; 15-21 severe): 0 Source: Developed by Drs. Vikas Khan, Becky Carrion, Robert Hernandez and colleagues, with an educational caren from [employer]. MATEUSZ-7 Assessment Billing MATEUSZ-7 Assessment Tool: MATEUSZ-7 Assessment 96851 Review of Systems Const Denies chills, Denies fatigue, Denies headache(s) and Denies weight loss Eyes Denies change in vision, Denies diplopia and Denies eye pain ENT Denies vertigo, Denies dizziness, Denies headache(s) and Denies nasal discharge Card Denies chest pain, Denies rapid heart rate and Denies dyspnea on exertion Resp Denies chest congestion, Denies cough, Denies pain with cough and Denies dyspnea on exertion GI Denies abdominal pain, Denies hematochezia and Denies change in bowel habits Musc Denies myalgias, Denies arthralgias and Denies joint swelling Skin/Breast Denies lesions and Denies unusual bruising Neuro Denies vertigo, Denies dizziness, Denies headache(s) and Denies focal weakness Endo Denies fatigue Physical exam (Primary Care) Vital Signs: Last Vital Signs Pulse 80 12/17/23 12:54 BP 122/78 12/17/23 12:54 Pulse Ox 99 12/17/23 12:54 Oxygen Delivery Method Room Air 12/17/23 12:54 BMI result Body Mass Index 30.4 Tobacco/Smoking Status: Tobacco use Status Tobacco use date assessed 12/17/23 12/17/23 12:55 Patient Tobacco Use Status Former Tobacco user 12/17/23 12:55 Tobacco use type Cigarette 12/17/23 12:55 e-Cigarette/Vaping Use Never Used 12/17/23 12:55 PHQ-9: PHQ-9 Score PHQ-9: Total score 0 12/17/23 12:55 Depression Screening Interpretation: Negative Thrive Assessment: Date of Thrive Assessment Date Thrive assessed 12/17/23 12/17/23 12:55 Const General: cooperative, healthy appearing and no acute distress Orientation/consciousness: oriented to person, oriented to place and oriented to time HENMT Head: Yes normal to inspection, Yes normocephalic and Yes atraumatic Mouth: Normal oral and palatal mucosa present and tongue normal Throat: Yes posterior oropharynx normal and Yes uvula midline Eyes General: appearance normal, both eyes and all related structures Neck Neck: Yes normal visual inspection, Yes full ROM and Yes no lymphadenopathy Thyroid: Thyroid normal Carotids: normal carotid upstroke Chest Chest palpation & inspection: normal inspection of the chest Resp Effort & Inspection: normal respiratory effort and able to speak in complete sentences Auscultation: clear to auscultation bilaterally Cardio Jugular venous distension: no JVD Palpation: normal PMI Rate: regular rate Rhythm: regular rhythm Heart sounds: S1 normal heart sound present and S2 normal heart sound present GI Inspection: Yes normal to inspection Palpation (GI): Soft to palpation and No hepatosplenomegaly present Auscultation: normal bowel sounds General: Yes no CVA tenderness Back/Spine/Pelvis Back: no CVA tenderness Skin General skin exam: no rashes or lesions noted Neuro General: oriented to person, oriented to place and oriented to time Extrem General: Yes normal to inspection and Yes full ROM Assessment and Plan Assessment & Plan (1) Physical exam: Code(s): Z00.00 - Encounter for general adult medical examination without abnormal findings Plan: do labs (2) Asthma: Code(s): J45.909 - Unspecified asthma, uncomplicated Plan: stable; same rx Orders: Orders Thyroid Stimulating Hormone Today E03.9 - Hypothyroidism, unspecified Complete Blood Count Auto Diff Today D64.9 - Anemia, unspecified Lipid Panel Today E78.5 - Hyperlipidemia, unspecified Comprehensive Evans. Panel Fast Today N28.9 - Disorder of kidney and ureter, unspecified Coding Level of Care Code Est Pt Prev Care 18-39y(84584) Diagnoses Physical exam Z00.00 Asthma J45.909 Additional Codes MATEUSZ-7 Assessment Billing - MATEUSZ-7 Assessment Tool: MATEUSZ-7 Assessment [id number] ([id number])
== END 2023-12-17 13:10 | disposition home or self-care (01) ==
PROVIDERS: PCP Internal Medicine; Visit Provider Internal Medicine
DX: Z00.00 Encounter for general adult medical examination without abnormal findings (principal); J45.909 Unspecified asthma, uncomplicated
CPT/HCPCS: 99395

== ENCOUNTER 2024-04-08 16:36 | Outpatient (REF) | payer OTHER, SELFPAY ==
[2024-04-08 16:50] LABS: MANUAL DIFF FLAG NO
[2024-04-08 17:49] LABS: Basophils Absolute Auto 0.1 X10*3/uL (0.0-0.2); Basophils Percent Auto 0.7 % (0-2); Eosinophils Absolute Auto 0.4 X10*3/uL (0.0-0.4); Eosinophils Percent Auto 4.8 % (0-4); Hematocrit 45.3 % (37.0-47.0); Hemoglobin 15.8 g/dl (12.0-16.0); Imm Gran Abs Auto 0.02 X10*3/uL (0.00-0.03); Imm Gran Pct Auto 0.2 % (0.0-0.4); Lymphocytes Absolute Auto 3.5 X10*3/uL (1.2-4.9); Lymphocytes Percent Auto 39.6 % (20-40); Mean Corpuscular HGB Conc 34.9 g/dl (31.0-35.0); Mean Corpuscular Volume 91.9 fL (80.0-98.0); Monocytes Absolute Auto 0.6 X10*3/uL (0.1-1.2); Monocytes Percent Auto 6.7 % (2-11); Neutrophils Absolute Auto 4.3 x10*3/uL (2.0-8.3); Platelet Count 339 X10*3/uL (160-400); Red Blood Count 4.93 X10*6/uL (4.20-5.50); Red Cell Distribution Width 11.7 % (11.0-16.0); White Blood Count 8.9 X10*3/uL (4.8-10.8)
[2024-04-08 19:57] LABS: Alanine Aminotransferase 38 U/L (0-31); Albumin Level 4.6 g/dL (3.5-5.0); Alkaline Phosphatase 51 U/L (39-117); Anion Gap 14 (12-20); Aspartate Amino Transferase 19 U/L (5-31); Bilirubin Total 0.4 mg/dL (0.0-1.0); Blood Urea Nitrogen 11 mg/dL (9-16); Calcium 9.9 mg/dL (8.4-10.2); Carbon Dioxide 21 mmol/L (22-29); Chloride 109 mmol/L (96-108); Cholesterol 181 mg/dL (<200); Estimated Glomerular Filt Rate > 60; Glucose Fasting 91 mg/dL (60-99); HDL Cholesterol 38 mg/dL (>40); LDL Cholesterol Calculated 100 mg/dL (<100); Potassium 4.1 mmol/L (3.3-5.1); Sodium 140 mmol/L (135-145); Total Protein 7.3 g/dL (6.5-8.0); Triglycerides 216 mg/dL (<150)
[2024-04-08 20:11] LABS: Thyroid Stimulating Hormone 1.88 uIU/mL (0.32-4.0)
== END 2024-04-08 16:37 | disposition home or self-care (01) ==
LOC: HO.LAB 16:36
PROVIDERS: PCP Internal Medicine; Visit Provider Internal Medicine
DX: E03.9 Hypothyroidism, unspecified (principal); D64.9 Anemia, unspecified; N28.9 Disorder of kidney and ureter, unspecified; E78.5 Hyperlipidemia, unspecified
CPT/HCPCS: 36415; 80053; 80061; 84443; 85025

== ENCOUNTER 2024-05-11 09:34 | Outpatient (AMB) | payer OTHER, SELFPAY ==
[2024-05-11 09:44] VITALS: BP 100/78; PULSE 65; O2SAT 99; BMI 30.4
--- NOTE | 2024-05-11 09:44 | A.OFFVIS_ITS ---
Vital Signs 05/11/24 09:44 Height 5 ft 5 in Weight 182 lb 15.739 oz BMI 30.4 BP 100/78 Blood Pressure Location Lt brachial Position Sitting Pulse 65 Pulse Source Pulse Oximeter Pulse Oximetry (%) 99 Oxygen Delivery Method Room Air Intake Visit Reasons: Asthma Intake Note: pt is here for follow up and feeling good Inspector Balance Truing Required: No Allergies eggplant [EGGPLANT] Allergy (Severe, Verified 05/11/24 09:50) HIVES latex [LATEX] Allergy (Intermediate, Verified 05/11/24 09:50) RASH eggs Allergy (Intermediate, Uncoded 05/11/24 09:50) abdominal pian Medication List - Last Reconciled 05/11/24 by Shahida Haines MD albuterol sulfate 90 mcg/actuation (Ventolin HFA) 2 puffs inhalation Q4-6H PRN albuterol sulfate 90 mcg/actuation 2 puffs inhalation Q4-6H PRN 30 days beclomethasone dipropionate 40 mcg/actuation (Qvar RediHaler) 2 inhalations inhalation BID 30 days cetirizine 10 mg PO DAILY PRN cyclobenzaprine 10 mg PO TID PRN fluticasone propionate 50 mcg/actuation (Flonase Allergy Relief) 1 spray intranasal DAILY fluticasone propionate 110 mcg/actuation (Flovent HFA) 2 puffs inhalation BID 30 days levonorgestrel (Mirena) 0 device intrauterine montelukast 10 mg PO BEDTIME Do you need a note to return to daycare/school/sports/work: No HPI HPI Asthma: Details: 39 YEARS OLD FEMALE BEING FOLLOWED FOR CHRONIC ALLERGIC RHINITIS AND BRONCHIAL ASTHMA. SHE IS DOING VERY WELL AND HAS HAD NO ACUTE EXACERBATIONS. ONLY MILD INTERMITTENT NASAL CONGESTION. HAS NO WHEEZING OR COUGH. SHE CAN WALK AROUND WITHOUT ANY SHORTNESS OF BREATH. [facility] Medical History Asthma Elevated BP without diagnosis of hypertension Obesity Adenomyosis of uterus Obesity Asthma Anemia Surgical History History of abdominoplasty History of tubal ligation Family History Mother Diabetes High cholesterol Hypertension Father No problems noted. 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 Cognitive needs: No Hearing needs: No Vision needs: Yes Female Reproductive History Menstrual Age of Menarche: 13 Review of Systems Const All systems reviewed & are unremarkable except as noted in HPI and below Eyes Reports no additional complaints ENT Reports nasal congestion and Reports nasal discharge Card Reports no additional complaints Resp Reports as per HPI GI Reports no additional complaints Reports no additional complaints Musc Reports no additional complaints Skin/Breast Reports system reviewed and no additional complaints, except as documented Neuro Reports no additional complaints Psych Reports no additional complaints Physical Exam Vital Signs: Last Vital Signs Pulse 65 05/11/24 09:44 BP 100/78 05/11/24 09:44 Pulse Ox 99 05/11/24 09:44 Oxygen Delivery Method Room Air 05/11/24 09:44 BMI result Body Mass Index 30.4 Const General: healthy appearing (Except for being overweight), comfortable, no acute distress, alert and awake Orientation/consciousness: patient oriented x3 HEENT Head: Yes normal to inspection General nose exam: No nasal polyps present, No nasal discharge present and Abnormal mucous membranes and turbinates present (As moderate hypertrophy of the inferior and middle turbinates) Face and sinus: Yes sinuses nontender Mouth: oropharynx normal Throat: Yes posterior oropharynx normal Eyes General: appearance normal, both eyes and all related structures Neck Neck: Yes normal visual inspection, Yes no lymphadenopathy, Yes trachea midline and Yes no JVD Thyroid: Thyroid normal Chest Chest palpation & inspection: normal inspection of the chest, normal palpation of entire chest wall and no tenderness Resp Other: Percussion note resonant. Has good breath sounds on both sides. There are no wheezes or crepitations. Cardio Palpation: normal PMI Rate: regular rate Rhythm: regular rhythm Heart sounds: no gallops and no murmurs Peripheral pulses: Peripheral pulses 2+ throughout GI Palpation (GI): Soft to palpation, nontender, No hepatosplenomegaly present and no masses Auscultation: normal bowel sounds Back/Spine/Pelvis Thoracic/Lumbar Spine: thoracic and lumbar spine normal to inspection Skin General skin exam: no rashes or lesions noted Neuro General: patient oriented x3 and no focal motor deficits Cranial nerves: Yes CN's II-XII intact bilaterally Extrem General: Yes normal to inspection, Yes no clubbing, cyanosis or edema and Yes no calf tenderness Psych Appearance: grossly normal and well kempt Speech and movement: Normal speech and movement present Office Procedures Spirometry Testing Spirometry Comments: In office spirometry completed with results given to Dr Haines. 05506- Spirometry Results Reviewed Results Reviewed: SPIROMETRY Assessment & Plan Assessment & Plan (1) Asthma: Comment: Bronchial asthma, mild to moderate, persistent, most likely allergic. One of the main triggers is domestic CATs . Code(s): J45.909 - Unspecified asthma, uncomplicated Category: Medical Plan: Patient re-educated about the management of bronchial asthma, Educated about avoidance of the triggers. [place] : Cont. QVAR -40 2 puffs BID Continue MONTELUKAST 10 mg daily Use Proair 2 puffs Q 4-6 hours p.r.n., but sparingly. (2) Allergic rhinitis: Comment: Chronic allergic rhinitis, around the year , worsening with seasonal changes. Code(s): J30.9 - Allergic rhinitis, unspecified Category: Medical Plan: TX : Continue Flonase 2 spray each nostril daily. Use Zyrtec 10 mg once a day p.r.n.. ( prescription sent ) Montelukast 10 mg daily Orders: Orders AMB Spirometry Testing Today J45.909 - Unspecified asthma, uncomplicated Medications: Changed From montelukast 10 mg PO BEDTIME 90 tabs 0RF To montelukast 10 mg PO BEDTIME 90 tabs 3RF ALLERGIC RHINITIS 90 days From albuterol sulfate 90 mcg/actuation (Ventolin HFA) 2 puffs inhalation Q4-6H PRN 18 ea 3RF for wheezing To albuterol sulfate 90 mcg/actuation (Ventolin HFA) 2 puffs inhalation Q4-6H PRN 18 ea 3RF for wheezing 30 days Refilled beclomethasone dipropionate 40 mcg/actuation (Qvar RediHaler) 2 inhalations inhalation BID 10.6 grams 5RF asthma 30 days Coding Level of Care Code Est Pt Level 3 (62613) Diagnoses Asthma J45.909 Allergic rhinitis J30.9 CPT Codes Spirometry - CPT: 94562- Spirometry ([id number])
== END 2024-05-11 10:18 | disposition home or self-care (01) ==
PROVIDERS: PCP Internal Medicine; Visit Provider Internal Medicine
DX: J45.909 Unspecified asthma, uncomplicated (principal); J30.9 Allergic rhinitis, unspecified
CPT/HCPCS: 94010; 99213

== ENCOUNTER → 2024-05-11 09:34 | Outpatient (BNVA) | payer OTHER, SELFPAY | PROVIDERS: PCP Internal Medicine; Visit Provider Internal Medicine | DX: J45.40 Moderate persistent asthma, uncomplicated (principal); J30.9 Allergic rhinitis, unspecified; Z79.899 Other long term (current) drug therapy | CPT/HCPCS: 94010 ==

== ENCOUNTER 2024-10-02 10:00 | Outpatient (AMB) | payer OTHER, SELFPAY ==
--- NOTE | 2024-10-02 10:01 | MHC.PC.OV ---
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 Accompanied by: Self / Same As Patient Allergies eggplant [EGGPLANT] Allergy (Severe, Verified 10/02/24 10:01) HIVES latex [LATEX] Allergy (Intermediate, Verified 10/02/24 10:01) RASH eggs Allergy (Intermediate, Uncoded 10/02/24 10:01) abdominal pian Medication List - Last Reconciled 10/05/24 by Osmany Grimes MD albuterol sulfate 90 mcg/actuation (Ventolin HFA) 2 puffs inhalation Q4-6H PRN 30 days albuterol sulfate 90 mcg/actuation 2 puffs inhalation Q4-6H PRN 30 days azithromycin take 500 mg today (day 1), then 250 mg for 4 days (days 2-5) PO beclomethasone dipropionate 40 mcg/actuation (Qvar RediHaler) 2 inhalations inhalation BID 30 days cetirizine 10 mg PO DAILY PRN cyclobenzaprine 10 mg PO TID PRN fluticasone propionate 50 mcg/actuation (Flonase Allergy Relief) 1 spray intranasal DAILY fluticasone propionate 110 mcg/actuation (Flovent HFA) 2 puffs inhalation BID 30 days levonorgestrel (Mirena) 0 device intrauterine montelukast 10 mg PO BEDTIME 30 days Tobacco use date assessed: 12/17/23 Dental Screening Dental Screen Date: 12/17/23 HPI Coughing , throat and chest pain HPI Details cough for 3 days PFSH Medical History Asthma Elevated BP without diagnosis of hypertension Obesity Adenomyosis of uterus Obesity Asthma Anemia Surgical History History of abdominoplasty History of tubal ligation Family History Mother Diabetes High cholesterol Hypertension Father No problems noted. Son High cholesterol Social History Household Members: Children Housing: House Are you a primary child care to a significant other at home: No Do you presently have visiting nurse or other home services: No Alcohol intake: current Alcohol intake frequency: holidays/special occasions only Patient Tobacco Use Status: Former Tobacco user Tobacco use type: Cigarette e-Cigarette/Vaping Use: Never Used Second Hand Smoke Exposure: No service: No Current occupational status: employed Current occupation: [employer] [place] Cognitive needs: No Hearing needs: No Vision needs: Yes Female Reproductive History Menstrual Age of Menarche: 13 Questionnaire Thrive Questionnaire Date Thrive assessed: 12/17/23 MATEUSZ-7 AMB Questionnaire MATEUSZ-7 Date MATEUSZ - 7 assessed: 12/17/23 Source: Developed by Drs. Vikas Khan, Becky Carrion, Robert Hernandez and colleagues, with an educational caren from [employer]. Review of Systems Const Denies chills, Denies headache(s) and Denies weight loss ENT Denies headache(s) Card Denies chest pain, Denies syncope, Denies irregular heart rhythm and Denies dyspnea Resp Denies dyspnea GI Denies abdominal pain, Denies change in stool character, Denies nausea and Denies vomiting Musc Denies deformity and Denies joint swelling Neuro Denies syncope and Denies headache(s) Physical exam (Primary Care) Tobacco/Smoking Status: Tobacco use Status Tobacco use date assessed 12/17/23 10/02/24 10:02 Patient Tobacco Use Status Former Tobacco user 10/02/24 10:02 Tobacco use type Cigarette 10/02/24 10:02 e-Cigarette/Vaping Use Never Used 10/02/24 10:02 Thrive Assessment: Date of Thrive Assessment Date Thrive assessed 12/17/23 10/02/24 10:02 Telehealth Telehealth Telehealth Platform: Telephone Location of provider rendering services: practice address Location of patient: address on file Patient Identification confirmed using: Name, : Yes Telehealth method: voice only Patient verbally consented to treatment: Yes Patient verbally consented to billing insurance company: Yes Patient informed of any privacy concerns related to visit: Yes Minutes spent on Phone/Video with Pt.: 15 (telephone) Coding Level of Care Code Est Pt Level 3 (05866) Diagnoses Cough R05 Assessment & Plan Assessment & Plan (1) Cough: Code(s): R05 - Cough Category: Medical Plan: rx sent Medications: New azithromycin take 500 mg today (day 1), then 250 mg for 4 days (days 2-5) PO 6 tabs 0RF Refilled albuterol sulfate 90 mcg/actuation 2 puffs inhalation Q4-6H PRN 8.5 grams 4RF shortness of breath or wheezing 30 days
== END 2024-10-02 13:34 | disposition home or self-care (01) ==
LOC: HO.HMCH 10:00
PROVIDERS: PCP Internal Medicine; Visit Provider Internal Medicine
DX: R05.9 Cough, unspecified (principal)

== ENCOUNTER 2024-10-29 09:35 | Outpatient (AMB) | payer OTHER, SELFPAY ==
[2024-10-29 09:40] VITALS: BP 102/54; PULSE 98; O2SAT 99; BMI 29.7
--- NOTE | 2024-10-29 09:40 | A.OFFVIS_ITS ---
Vital Signs 10/29/24 09:40 Height 5 ft 5 in Weight 178 lb 9.191 oz BMI 29.7 BP 102/54 L Blood Pressure Location Lt brachial Position Sitting Pulse 98 Pulse Source Pulse Oximeter Pulse Oximetry (%) 99 Oxygen Delivery Method Room Air Intake Visit Reasons: Asthma Intake Note: pt is here for follow up and has pain in the left lower lung base in back, tried stopping singular and finds herself using her pump. 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 Allergies eggplant [EGGPLANT] Allergy (Severe, Verified 10/29/24 10:09) HIVES latex [LATEX] Allergy (Intermediate, Verified 10/29/24 10:09) RASH eggs Allergy (Intermediate, Uncoded 10/29/24 10:09) abdominal pian Medication List - Last Reconciled 10/29/24 by Shahida Haines MD albuterol sulfate 90 mcg/actuation 2 puffs inhalation Q4-6H PRN 30 days cetirizine 10 mg PO DAILY PRN cyclobenzaprine 10 mg PO TID PRN fluticasone propionate 50 mcg/actuation (Flonase Allergy Relief) 1 spray intranasal DAILY levonorgestrel (Mirena) 0 device intrauterine montelukast 10 mg PO BEDTIME 30 days Do you need a note to return to daycare/school/sports/work: No HPI HPI Asthma: Details: This 39 years old female is a case of allergic rhinitis and allergic bronchial asthma. It has been under control as long as she was taking montelukast 10 mg daily. When she stopped using the montelukast then she started having frequent feeling of tightness in the chest and congestion. And then she needed to use albuterol a few times every day. Now back on montelukast the symptoms are well controlled. She does have to use cetirizine 10 mg daily every now and then for increased nasal congestion. Complains of pain in the left upper back, and wonders if this is due to some thing wrong with her lungs. The the pain is mild dull and not pleuritic. [facility] Medical History Asthma Elevated BP without diagnosis of hypertension Obesity Adenomyosis of uterus Obesity Asthma Anemia Surgical History History of abdominoplasty History of tubal ligation Family History Mother Diabetes High cholesterol Hypertension Father No problems noted. 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 Cognitive needs: No Hearing needs: No Vision needs: Yes Female Reproductive History Menstrual Age of Menarche: 13 Review of Systems Const All systems reviewed & are unremarkable except as noted in HPI and below Eyes Reports no additional complaints ENT Reports nasal congestion and Reports nasal discharge Card Reports no additional complaints Resp Reports as per HPI GI Reports no additional complaints Reports no additional complaints Musc Reports no additional complaints Skin/Breast Reports system reviewed and no additional complaints, except as documented Neuro Reports no additional complaints Psych Reports no additional complaints Physical Exam Vital Signs: Last Vital Signs Pulse 98 10/29/24 09:40 BP 102/54 L 10/29/24 09:40 Pulse Ox 99 10/29/24 09:40 Oxygen Delivery Method Room Air 10/29/24 09:40 BMI result Body Mass Index 29.7 Const General: healthy appearing (Except for being overweight), comfortable, no acute distress, alert and awake Orientation/consciousness: patient oriented x3 HEENT Head: Yes normal to inspection General nose exam: No nasal polyps present, No nasal discharge present and Abnormal mucous membranes and turbinates present (As moderate hypertrophy of the inferior and middle turbinates) Face and sinus: Yes sinuses nontender Mouth: oropharynx normal Throat: Yes posterior oropharynx normal Eyes General: appearance normal, both eyes and all related structures Neck Neck: Yes normal visual inspection, Yes no lymphadenopathy, Yes trachea midline and Yes no JVD Thyroid: Thyroid normal Chest Other: INSPECTION AND PALPATION OF THE CHEST, does not indicate any tenderness or any abnormal duty on auscultation, related to the area back pain which she points out. The pain seems to be more muscular in nature. Chest palpation & inspection: normal inspection of the chest, normal palpation of entire chest wall and no tenderness Resp Other: Percussion note resonant. Has good breath sounds on both sides. There are no wheezes or crepitations. Cardio Palpation: normal PMI Rate: regular rate Rhythm: regular rhythm Heart sounds: no gallops and no murmurs Peripheral pulses: Peripheral pulses 2+ throughout GI Palpation (GI): Soft to palpation, nontender, No hepatosplenomegaly present and no masses Auscultation: normal bowel sounds Back/Spine/Pelvis Thoracic/Lumbar Spine: thoracic and lumbar spine normal to inspection Skin General skin exam: no rashes or lesions noted Neuro General: patient oriented x3 and no focal motor deficits Cranial nerves: Yes CN's II-XII intact bilaterally Extrem General: Yes normal to inspection, Yes no clubbing, cyanosis or edema and Yes no calf tenderness Psych Appearance: grossly normal and well kempt Speech and movement: Normal speech and movement present Assessment & Plan Assessment & Plan (1) Asthma: Comment: Bronchial asthma, mild to moderate, persistent, most likely allergic. One of the main triggers is domestic CATs . Code(s): J45.909 - Unspecified asthma, uncomplicated Category: Medical Plan: Albuterol HFA 2 puffs Q 4-6 hours p.r.n. Try to stay away from the CAT OK to continue using montelukast 10 mg daily. (2) Allergic rhinitis: Comment: Chronic allergic rhinitis, around the year , worsening with seasonal changes. Code(s): J30.9 - Allergic rhinitis, unspecified Category: Medical Plan: Montelukast 10 mg daily Flonase nasal spray-50 2 spray in each nostril daily. Cetirizine 10 mg once a day p.r.n. Coding Level of Care Code Est Pt Level 3 (90038) Diagnoses Asthma J45.909 Allergic rhinitis J30.9
== END 2024-10-29 10:10 | disposition home or self-care (01) ==
PROVIDERS: PCP Internal Medicine; Visit Provider Internal Medicine
DX: J45.909 Unspecified asthma, uncomplicated (principal); J30.9 Allergic rhinitis, unspecified
CPT/HCPCS: 99213

== ENCOUNTER → 2024-10-29 09:35 | Outpatient (BNVA) | payer OTHER, SELFPAY | PROVIDERS: PCP Internal Medicine; Visit Provider Internal Medicine ==

== ENCOUNTER 2024-12-18 13:01 | Outpatient (AMB) | payer BC, SELFPAY ==
[2024-12-18 13:03] VITALS: BP 106/78; PULSE 76; O2SAT 98; BMI 29.8
--- NOTE | 2024-12-18 13:03 | MHC.PC.OV ---
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 Accompanied by: Self / Same As Patient Allergies eggplant [EGGPLANT] Allergy (Severe, Verified 12/18/24 13:04) HIVES latex [LATEX] Allergy (Intermediate, Verified 12/18/24 13:04) RASH eggs Allergy (Intermediate, Uncoded 12/18/24 13:04) abdominal pian Medication List - Last Reconciled 12/18/24 by Osmany Grimes MD albuterol sulfate 90 mcg/actuation 2 puffs inhalation Q4-6H PRN 30 days cetirizine 10 mg PO DAILY PRN cyclobenzaprine 10 mg PO TID PRN fluticasone propionate 50 mcg/actuation (Flonase Allergy Relief) 1 spray intranasal DAILY levonorgestrel (Mirena) 0 device intrauterine montelukast 10 mg PO BEDTIME 30 days Tobacco use date assessed: 12/18/24 Dental Screening Dental Screen Date: 12/18/24 Did you have a dental visit in the last 12 months?: Yes Did you have a dental problem in the last 6 months where you did not have access to dental care?: No Was dental information given to patient?: Patient has dentist HPI pe HPI Details healthy [facility] Medical History Asthma Elevated BP without diagnosis of hypertension Obesity Adenomyosis of uterus Obesity Asthma Anemia Surgical History History of abdominoplasty History of tubal ligation Family History Mother Diabetes High cholesterol Hypertension Father No problems noted. Son High cholesterol Social History Household Members: Children Housing: House Are you a primary respiratory care specialist to a significant other at home: No Do you presently have visiting nurse or other home services: No Alcohol intake: current Alcohol intake frequency: holidays/special occasions only Patient Tobacco Use Status: Former Tobacco user Tobacco use type: Cigarette e-Cigarette/Vaping Use: Never Used Second Hand Smoke Exposure: No service: No Current occupational status: employed Current occupation: [employer] [place] Cognitive needs: No Hearing needs: No Vision needs: Yes Female Reproductive History Menstrual Age of Menarche: 13 Questionnaire PHQ-9 Over the last 2 weeks, how often have you been bothered by any of the following problems? 1. Little interest or pleasure in doing things: not at all 2. Feeling down, depressed, or hopeless: not at all 3. Trouble falling or staying asleep, or sleeping too much: not at all 4. Feeling tired or having little energy: not at all 5. Poor appetite or overeating: not at all 6. Feeling bad about yourself - or that you are a failure or have let yourself or your family down: not at all 7. Trouble concentrating on things, such as reading the newspaper or watching television: not at all 8. Moving or speaking so slowly that other people could have noticed. Or the opposite - being so fidgety or restless that you have been moving around a lot more than usual: not at all 9. Thoughts that you would be better off or of hurting yourself in some way: not at all Total score: 0 Source: Developed by Drs. Vikas Khan, Becky Carrion, Robert Hernandez and colleagues, with an educational caren from [employer]. Thrive Questionnaire Date Thrive assessed: 12/18/24 I am a: Patient What is your living situation today?: I have a steady place to live Within the past 12 months, did the food you bought not last and you didn't have the money to get more?: Never true Within the past 12 months, did you worry whether your food would run out before you got money to buy more?: Never true Do you have trouble paying for medicines?: No Do you have trouble getting transportation to medical appointments?: No Do you have trouble paying your heating and electricity bill?: No Do you have trouble taking care of your child, family member or friend?: No Do you have trouble with day-to-day activities such as bathing, preparing meals, shopping, managing finances, etc.?: No Are you currently unemployed and looking for a job?: No Are you interested in more education?: No Please select the resources that you would like help with: None Currently or been in a relationship where the following occur: I choose not to answer THRIVE Score: 0 AUDIT C Alcohol Use Questionnaire (AUDIT-C) 1. How often do you have a drink containing alcohol?: 2-4 times a month 2. How many drinks containing alcohol do you have on a typical day when you are drinking?: 1 or 2 3. How often do you have six or more drinks on one occasion?: Never Total Score: 2 MATEUSZ-7 AMB Questionnaire MATEUSZ-7 Date MATEUSZ - 7 assessed: 12/18/24 Feeling nervous, anxious, or on edge: 0 = Not at all Not being able to stop or control worryin = Nearly every day Worrying too much about different things: 3 = Nearly every day Trouble relaxin = Not at all Being so restless that it is hard to sit still: 0 = Not at all Becoming easily annoyed or irritable: 0 = Not at all Feeling afraid as if something awful might happen: 0 = Not at all Total MATEUSZ-7 score (0-4 normal; 5-9 mild; 10-14 moderate; 15-21 severe): 6 Source: Developed by Drs. Vikas Khan, Becky Carrion, Robert Hernandez and colleagues, with an educational caren from [employer]. Review of Systems Const Denies chills, Denies fatigue, Denies headache(s) and Denies weight loss Eyes Denies change in vision, Denies diplopia and Denies eye pain ENT Denies vertigo, Denies dizziness, Denies headache(s) and Denies nasal discharge Card Denies chest pain, Denies rapid heart rate and Denies dyspnea on exertion Resp Denies chest congestion, Denies cough, Denies pain with cough and Denies dyspnea on exertion GI Denies abdominal pain, Denies hematochezia and Denies change in bowel habits Musc Denies myalgias, Denies arthralgias and Denies joint swelling Skin/Breast Denies lesions and Denies unusual bruising Neuro Denies vertigo, Denies dizziness, Denies headache(s) and Denies focal weakness Endo Denies fatigue Physical exam (Primary Care) Vital Signs: Last Vital Signs Pulse 76 12/18/24 13:03 BP 106/78 12/18/24 13:03 Pulse Ox 98 12/18/24 13:03 Oxygen Delivery Method Room Air 12/18/24 13:03 BMI result Body Mass Index 29.8 Tobacco/Smoking Status: Tobacco use Status Tobacco use date assessed 12/18/24 12/18/24 13:09 Patient Tobacco Use Status Former Tobacco user 12/18/24 13:09 Tobacco use type Cigarette 12/18/24 13:09 e-Cigarette/Vaping Use Never Used 12/18/24 13:09 PHQ-9: PHQ-9 Score PHQ-9: Total score 0 12/18/24 13:09 Thrive Assessment: Date of Thrive Assessment Date Thrive assessed 12/18/24 12/18/24 13:09 Currently or been in a relationship where the following occur: I choose not to answer Const General: cooperative, healthy appearing and no acute distress Orientation/consciousness: oriented to person, oriented to place and oriented to time HENMT Head: Yes normal to inspection, Yes normocephalic and Yes atraumatic Mouth: Normal oral and palatal mucosa present and tongue normal Throat: Yes posterior oropharynx normal and Yes uvula midline Eyes General: appearance normal, both eyes and all related structures Neck Neck: Yes normal visual inspection, Yes full ROM and Yes no lymphadenopathy Thyroid: Thyroid normal Carotids: normal carotid upstroke Chest Chest palpation & inspection: normal inspection of the chest Resp Effort & Inspection: normal respiratory effort and able to speak in complete sentences Auscultation: clear to auscultation bilaterally Cardio Jugular venous distension: no JVD Palpation: normal PMI Rate: regular rate Rhythm: regular rhythm Heart sounds: S1 normal heart sound present and S2 normal heart sound present GI Inspection: Yes normal to inspection Palpation (GI): Soft to palpation and No hepatosplenomegaly present Auscultation: normal bowel sounds General: Yes no CVA tenderness Back/Spine/Pelvis Back: no CVA tenderness Skin General skin exam: no rashes or lesions noted Neuro General: oriented to person, oriented to place and oriented to time Extrem General: Yes normal to inspection and Yes full ROM Coding Level of Care Code Est Pt Prev Care 18-39y(56440) Diagnoses Physical exam Z00.00 Assessment & Plan Assessment & Plan (1) Physical exam: Code(s): Z00.00 - Encounter for general adult medical examination without abnormal findings Category: Medical Plan: healthy; do labs Orders: Orders Lipid Panel Today Z13.220 - Encounter for screening for lipoid disorders Complete Blood Count Auto Diff Today Z13.0 - Encounter for screening for diseases of the blood and blood-forming organs and certain disorders involving the immune mechanism Comprehensive [place]. Panel Fast Today Z13.9 - Encounter for screening, unspecified Thyroid Stimulating Hormone Today Z13.29 - Encounter for screening for other suspected endocrine disorder
== END 2024-12-18 13:21 | disposition home or self-care (01) ==
PROVIDERS: PCP Internal Medicine; Visit Provider Internal Medicine
DX: Z00.00 Encounter for general adult medical examination without abnormal findings (principal)

== ENCOUNTER 2024-12-25 08:15 | Outpatient (REF) | payer BC, SELFPAY ==
[2024-12-25 10:20] LABS: MANUAL DIFF FLAG NO
[2024-12-25 10:27] LABS: Basophils Percent Auto 0.4 % (0-2); Eosinophils Absolute Auto 0.2 X10*3/uL (0.0-0.4); Eosinophils Percent Auto 3.1 % (0-4); Hematocrit 45.6 % (37.0-47.0); Hemoglobin 15.2 g/dl (12.0-16.0); Imm Gran Abs Auto 0.03 X10*3/uL (0.00-0.03); Imm Gran Pct Auto 0.4 % (0.0-0.4); Lymphocytes Percent Auto 28.5 % (20-40); Mean Corpuscular HGB Conc 33.3 g/dl (31.0-35.0); Mean Corpuscular Hemoglobin 31.5 pg (27.0-33.0); Mean Corpuscular Volume 94.4 fL (80.0-98.0); Mean Platelet Volume 10.1 fL (9.4-12.3); Monocytes Absolute Auto 0.4 X10*3/uL (0.1-1.2); Monocytes Percent Auto 5.2 % (2-11); Neutrophils Absolute Auto 4.4 x10*3/uL (2.0-8.3); Neutrophils Percent Auto 62.4 % (45-73); Platelet Count 259 X10*3/uL (160-400); Red Blood Count 4.83 X10*6/uL (4.20-5.50); Red Cell Distribution Width 11.6 % (11.0-16.0); White Blood Count 7.1 X10*3/uL (4.8-10.8)
[2024-12-25 11:37] LABS: Alanine Aminotransferase 28 U/L (0-31); Albumin Level 4.5 g/dL (3.5-5.0); Alkaline Phosphatase 50 U/L (39-117); Anion Gap 9 (12-20); Aspartate Amino Transferase 21 U/L (5-31); Bilirubin Total 0.7 mg/dL (0.0-1.0); Blood Urea Nitrogen 9 mg/dL (9-16); Calcium 9.6 mg/dL (8.4-10.2); Carbon Dioxide 25 mmol/L (22-29); Chloride 108 mmol/L (96-108); Cholesterol 177 mg/dL (<200); Estimated Glomerular Filt Rate > 60; Glucose Fasting 91 mg/dL (60-99); HDL Cholesterol 46 mg/dL (>40); LDL Cholesterol Calculated 113 mg/dL (<100); Potassium 4.4 mmol/L (3.3-5.1); Sodium 138 mmol/L (135-145); Total Protein 7.5 g/dL (6.5-8.0); Triglycerides 94 mg/dL (<150)
[2024-12-25 11:41] LABS: Thyroid Stimulating Hormone 0.72 uIU/mL (0.32-4.0)
== END 2024-12-25 08:16 | disposition home or self-care (01) ==
LOC: HO.HMGCLDS 08:15
PROVIDERS: PCP Internal Medicine; Visit Provider Internal Medicine
DX: Z13.9 Encounter for screening, unspecified (principal); Z13.220 Encounter for screening for lipoid disorders; Z13.0 Encounter for screening for diseases of the blood and blood-forming organs and certain disorders involving the immune mechanism; Z13.29 Encounter for screening for other suspected endocrine disorder
CPT/HCPCS: 36415; 80053; 80061; 84443; 85025

== ENCOUNTER 2025-03-04 08:01 | Outpatient (AMB) | payer BC, SELFPAY ==
--- NOTE | 2025-03-04 08:32 | MHC.PC.OV ---
Vital Signs 03/04/25 08:34 Height 5 ft 5 in Weight 179 lb 8 oz BMI 29.9 BP 110/70 Blood Pressure Location Lt brachial Position Sitting Pulse 65 Pulse Source Pulse Oximeter Temp 97.3 F Temp Source Temporal Artery Scan Pulse Oximetry (%) 97 Oxygen Delivery Method Room Air Intake Visit Reasons: Kidney symptoms Intake Note: Patient is here to follow up on Kidney Symptoms. Complaint of left lower back pain Manager Personal Required: No Order Administrator: Not Required per policy Accompanied by: Self / Same As Patient Allergies eggplant [EGGPLANT] Allergy (Severe, Verified 03/04/25 08:34) HIVES latex [LATEX] Allergy (Intermediate, Verified 03/04/25 08:34) RASH eggs Allergy (Intermediate, Uncoded 03/04/25 08:34) abdominal pian Medication List - Last Reconciled 03/04/25 by Leny Hartman PA-C albuterol sulfate 90 mcg/actuation 2 puffs inhalation Q4-6H PRN 30 days cetirizine 10 mg PO DAILY PRN cyclobenzaprine 10 mg PO TID PRN fluticasone propionate 50 mcg/actuation (Flonase Allergy Relief) 1 spray intranasal DAILY levonorgestrel (Mirena) 0 device intrauterine montelukast 10 mg PO BEDTIME 30 days Tobacco use date assessed: 03/04/25 Dental Screening Dental Screen Date: 12/18/24 HPI Kidney symptoms HPI Details 39-year-old female with past medical history of asthma and obesity last seen 11/[address] Grimes coming in for acute problem. The patient is a 39-year-old female presenting with intermittent left flank pain. The patient's intermittent pain has been ongoing for about a month and a half, characterized by episodes that come and go, without any constant discomfort. She associates the pain with a history of kidney stones, the last significant episode occurring when she was 17 years old, which required hospitalization. She denies symptoms such as dysuria, burning on urination, fever, nausea, vomiting, or changes in bowel habits, although she notes frequent urination, potentially linked to her significant coffee consumption. The pain does not seem to be influenced by posture or specific activities, evident by its sudden absence during today?s consultation. REPLACED BY [facility] Medical History Asthma Elevated BP without diagnosis of hypertension Obesity Adenomyosis of uterus Obesity Asthma Anemia Surgical History History of abdominoplasty History of tubal ligation Family History Mother Diabetes High cholesterol Hypertension Father No problems noted. 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 Cognitive needs: No Hearing needs: No Vision needs: Yes Female Reproductive History Menstrual Age of Menarche: 13 Questionnaire Thrive Questionnaire Date Thrive assessed: 12/12/24 I am a: Patient What is your living situation today?: I have a steady place to live Within the past 12 months, did the food you bought not last and you didn't have the money to get more?: Never true Within the past 12 months, did you worry whether your food would run out before you got money to buy more?: Never true Do you have trouble paying for medicines?: No Do you have trouble getting transportation to medical appointments?: No Do you have trouble paying your heating and electricity bill?: No Do you have trouble taking care of your child, family member or friend?: No Do you have trouble with day-to-day activities such as bathing, preparing meals, shopping, managing finances, etc.?: No Are you currently unemployed and looking for a job?: No Are you interested in more education?: No Please select the resources that you would like help with: None Currently or been in a relationship where the following occur: I choose not to answer THRIVE Score: 0 MATEUSZ-7 AMB Questionnaire MATEUSZ-7 Date MATEUSZ - 7 assessed: 12/18/24 Source: Developed by Drs. Vikas Khan, Becky BRobert Lamb and colleagues, with an educational caren from [employer]. Review of Systems Const Denies body aches, Denies chills, Denies fever(s), Denies headache(s) and Denies poor appetite Eyes Reports no additional complaints ENT Denies dizziness and Denies headache(s) Card Denies chest pain, Denies lightheadedness and Denies dyspnea Resp Denies cough and Denies dyspnea GI Denies abdominal pain, Denies constipation, Denies diarrhea, Denies nausea and Denies vomiting Reports as per HPI Musc Reports no additional complaints and Denies abnormal gait Skin/Breast Reports system reviewed and no additional complaints, except as documented Neuro Denies abnormal gait, Denies dizziness and Denies headache(s) Psych Reports no additional complaints Physical exam (Primary Care) Vital Signs: Last Vital Signs Temp 97.3 F 03/04/25 08:34 Pulse 65 03/04/25 08:34 BP 110/70 03/04/25 08:34 Pulse Ox 97 03/04/25 08:34 Oxygen Delivery Method Room Air 03/04/25 08:34 BMI result Body Mass Index 29.9 Tobacco/Smoking Status: Tobacco use Status Tobacco use date assessed 03/04/25 03/04/25 08:34 Patient Tobacco Use Status Former Tobacco user 03/04/25 08:34 Tobacco use type Cigarette 03/04/25 08:34 e-Cigarette/Vaping Use Never Used 03/04/25 08:34 Thrive Assessment: Date of Thrive Assessment Date Thrive assessed 12/12/24 03/04/25 08:34 Currently or been in a relationship where the following occur: I choose not to answer Const General: cooperative, healthy appearing, comfortable and no acute distress Orientation/consciousness: patient oriented x3 HENMT Head: Yes normocephalic Ears: hearing grossly normal bilaterally General nose exam: Normal external nose present Eyes General: appearance normal, both eyes and all related structures Conjunctivae: conjunctivae normal Neck Neck: Yes full ROM and Yes no lymphadenopathy Chest Other: No tenderness to palpation over ribs Resp Effort & Inspection: normal respiratory effort Auscultation: clear to auscultation bilaterally, no crackles, no rales, no rhonchi and no wheezes Cardio Rate: regular rate Rhythm: regular rhythm GI Other: Left upper quadrant tenderness to deep palpation and no tenderness to palpation of suprapubic area Palpation (GI): Soft to palpation, not firm, nontender, no guarding and not rigid Back/Spine/Pelvis Other: No tenderness to palpation of lumbar spine, paraspinal muscles or CVA tenderness. Skin General skin exam: no rashes or lesions noted Neuro General: patient oriented x3 Gait exam (Neuro): Normal gait present Extrem General: Yes normal to inspection, Yes full ROM and No edema Psych Affect: normal affect Attitude: cooperative Insight: Good insight present (Psych) Judgement: Good judgement present (Psych) Results AMB Urinalysis Dipstick UR Leukocytes Negative Last Edit by NICOLE Huertas on 03/04/25 09:26 UR Nitrite Negative Last Edit by NICOLE Huertas on 03/04/25 09:26 UR Urobilinogen Normal Last Edit by Rafa Collins [facility] on 03/04/25 09:26 UR Protein Negative Last Edit by NICOLE Huertas on 03/04/25 09:26 UR Ph 7.0 Last Edit by Rafa Collins [place] on 03/04/25 09:26 UR Blood Small Last Edit by Rafa Collins [facility] on 03/04/25 09:26 UR Specific [place] 1.015 Last Edit by NICOLE Huertas on 03/04/25 09:26 UR Ketone Negative Last Edit by Rafa Collins [facility] on 03/04/25 09:26 UR Bilirubin Negative Last Edit by NICOLE Huertas on 03/04/25 09:26 UR Glucose Negative Last Edit by Rafa Collins [facility] on 03/04/25 09:26 Coding Level of Care Code Est Pt Level 3 (00948) Diagnoses Left flank pain R10.9 Assessment & Plan Assessment & Plan (1) Left flank pain: Code(s): R10.9 - Unspecified abdominal pain Category: Medical Plan: For the intermittent flank pain, I will conduct a urinalysis to evaluate for hematuria. If results indicate potential kidney stones, an ultrasound will be performed. We will manage the pain conservatively with increased water intake, Tylenol, and heating pads unless further diagnostic findings necessitate additional intervention. Patient would like to monitor and manage conservatively at this time due to private insurance and high copays. Plan This note was constructed using voice recognition software. While every effort has been made to ensure accuracy and head loader, still areas may have been included sometimes these areas may affect the content or meeting of the given symptoms. Total time spent caring for the patient today was 20 minutes. This includes time spent before the visit reviewing the chart, time spent during the visit, and time spent after the visit and documentation. Patient was informed and verbally consented to the use of an ambient scribe for clinic note documentation during this visit. Orders: Orders AMB Urinalysis Dipstick Today Z13.9 - Encounter for screening, unspecified
[2025-03-04 08:34] VITALS: BP 110/70; PULSE 65; TEMP 36.3; O2SAT 97; BMI 29.9
== END 2025-03-04 09:28 | disposition home or self-care (01) ==
PROVIDERS: PCP Internal Medicine
DX: Z13.9 Encounter for screening, unspecified (principal); R10.9 Unspecified abdominal pain

== ENCOUNTER → 2025-03-04 08:01 | Outpatient (BNVA) | payer BC, SELFPAY | PROVIDERS: PCP Internal Medicine | DX: R10.9 Unspecified abdominal pain (principal) | CPT/HCPCS: 81002 ==

== ENCOUNTER 2025-03-11 08:39 | Outpatient (REF) | payer OTHER, SELFPAY ==
[2025-03-11 17:18] LABS: CT PCR NOT DETECTED (Not Detect.); NG PCR NOT DETECTED (Not Detect.)
[2025-03-12 11:20] LABS: Bacterial Vaginosis PCR NEGATIVE (Negative); Candida Group PCR NOT DETECTED (Not Detect); Candida glab krusei PCR NOT DETECTED (Not Detect); Trichomonas vaginalis PCR NOT DETECTED (Not Detect)
== END 2025-03-11 08:40 | disposition home or self-care (01) ==
LOC: HO.LAB 08:39
PROVIDERS: PCP Internal Medicine; Visit Provider Advanced Practice Midwife
DX: Z20.2 Contact with and (suspected) exposure to infections with a predominantly sexual mode of transmission (principal)
CPT/HCPCS: 81515; 87491; 87591

== ENCOUNTER 2025-03-11 08:39 | Outpatient (AMB) | payer OTHER, SELFPAY ==
--- NOTE | 2025-03-11 08:42 | A.OFFVIS_ITS ---
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 Doing well with outboard motor mechanic concerns. Mirena in place, no cocnerns. Currently is not sexually active. She denies vaginal itching and irritation. STI screening offered; she accepts. She tries to eat healthy and stays active with exercise- bikes. Denies family history of breast, ovarian or colon cancer. Last pap smear 2020, negative. [facility] Medical History (Updated 03/11/25 @ 09:15 by Myra Yates CNM) IUD (intrauterine device) in place Asthma Elevated BP without diagnosis of hypertension Obesity Adenomyosis of uterus Obesity Asthma Anemia Surgical History History of abdominoplasty History of tubal ligation Family History Mother Diabetes High cholesterol Hypertension Father No problems noted. 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 Cognitive needs: No Hearing needs: No Vision needs: Yes Female Reproductive History Menstrual Age of Menarche: 13 control method: progestin IUCD (Mirena 07/13/22) and permanent sterilization Permanent Sterilization: BTL Total pregnancies: 4 Full term: 3 Number of Living Children: 3 Ab spontaneous: 1 Date of last pap smear: 08/11/21 (neg pap and hpv) Review of Systems Const All systems reviewed & are unremarkable except as noted in HPI and below Reports as per HPI Eyes Reports no additional complaints ENT Reports no additional complaints Card Reports no additional complaints Resp Reports no additional complaints GI Reports as per HPI and Reports no additional complaints Reports as per HPI Musc Reports no additional complaints Skin/Breast Reports as per HPI Neuro Reports no additional complaints Psych Reports no additional complaints Endo Reports no additional complaints Kee/Lymph Reports no additional complaints Aller/Immun Reports no additional complaints Physical Exam Vital Signs: Last Vital Signs BP 118/70 03/11/25 08:43 BMI result Body Mass Index 29.8 Const General: cooperative, healthy appearing, no acute distress, well developed and alert Orientation/consciousness: patient oriented x3 HEENT Head: Yes normal to inspection Eyes General: appearance normal, both eyes and all related structures Neck Neck: Yes normal visual inspection Thyroid: Thyroid normal Chest Chest palpation & inspection: normal inspection of the chest and other (no puckering, dimpling, peau de orange, retraction, discharge, masses) Breast/axilla inspection: normal inspection of the breasts Breast/axilla palpation: normal palpation of the breasts Resp Effort & Inspection: normal respiratory effort GI Inspection: Yes normal to inspection and Yes scar Palpation (GI): Soft to palpation Rectal Exam - Female: deferred General: Yes bladder normal to palpation External Female Exam: normal external appearance and normal appearance of the urethra Speculum Exam - Vagina: normal appearance of the vagina, normal palpation and normal vaginal discharge Speculum Exam - Cervix: normal appearance of the cervix, normal palpation and Other cervical findings present (IUD strings at the os) Bimanual exam- vagina & uterus: normal bimanual exam, normal palpation, uterine size normal, bladder normal to palpation, normal palpation and non-tender Bimanual Exam- Adnexa, other: no masses Skin General skin exam: no rashes or lesions noted Rashes: no rashes Neuro General: patient oriented x3 Cognition (Neuro): normal cognition Extrem General: Yes normal to inspection Psych Attitude: cooperative Thought process: Normal thought process present Assessment & Plan Assessment & Plan (1) Encounter for well woman exam with routine gynecological exam: Code(s): Z01.419 - Encounter for gynecological examination (general) (routine) without abnormal findings Category: Medical Plan Discussed: Current recommendations for pap smears per ASCCP guidelines. Breast awareness and periodic breast exams. Maintain a healthy lifestyle including a well balanced diet and routine exercise. Use condoms for STI and prevention. Patient verbalizes understanding and agrees to the plan of care. She was given opportunity to ask questions and all questions were answered to the best of my ability. RTO in one year for annual outboard motor mechanic examination. This note is constructed using voice recognition software. While every effort has been made to ensure accuracy, surgical appliance fitter errors may have been included. Orders: Orders Bacterial Vaginosis Panel Today Z20.2 - Contact with and (suspected) exposure to infections with a predominantly sexual mode of transmission HIV Ab/Ag Today Z20.2 - Contact with and (suspected) exposure to infections with a predominantly sexual mode of transmission Hepatitis C Antibody Reflex Today Z20.2 - Contact with and (suspected) exposure to infections with a predominantly sexual mode of transmission Syphilis Screen Today Z20.2 - Contact with and (suspected) exposure to infections with a predominantly sexual mode of transmission CT NG by PCR Today Z20.2 - Contact with and (suspected) exposure to infections with a predominantly sexual mode of transmission Hepatitis B Core Antibody Today Z20.2 - Contact with and (suspected) exposure to infections with a predominantly sexual mode of transmission Coding Level of Care Code Est Pt Prev Care 18-39y(87493) Diagnoses Encounter for well woman exam with routine gynecological exam Z01.419
[2025-03-11 08:43] VITALS: BP 118/70; BMI 29.8
== END 2025-03-11 09:24 | disposition home or self-care (01) ==
LOC: HO.HWS 08:39
PROVIDERS: PCP Internal Medicine; Visit Provider Advanced Practice Midwife
DX: Z01.419 Encounter for gynecological examination (general) (routine) without abnormal findings (principal)
CPT/HCPCS: 99395; 99459

== ENCOUNTER 2025-03-11 09:16 | Outpatient (REF) | payer OTHER, SELFPAY | END 2025-03-11 09:17 | disposition home or self-care (01) | LOC: HO.LNP 09:16 | PROVIDERS: Visit Provider Advanced Practice Midwife | DX: Z13.89 Encounter for screening for other disorder (principal) ==

== ENCOUNTER 2025-04-29 09:31 | Outpatient (AMB) | payer BC, SELFPAY ==
[2025-04-29 09:38] VITALS: BP 102/68; PULSE 78; O2SAT 98; BMI 29.9
--- NOTE | 2025-04-29 09:38 | A.OFFVIS_ITS ---
Vital Signs 04/29/25 09:38 Height 5 ft 5 in Weight 179 lb 10.828 oz BMI 29.9 BP 102/68 Blood Pressure Location Lt brachial Position Sitting Pulse 78 Pulse Source Pulse Oximeter Pulse Oximetry (%) 98 Oxygen Delivery Method Room Air Intake Visit Reasons: Asthma Intake Note: pt is here for follow up and states she is feeling good, asthma is controlled. 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 Allergies eggplant [EGGPLANT] Allergy (Severe, Verified 04/29/25 10:03) HIVES latex [LATEX] Allergy (Intermediate, Verified 04/29/25 10:03) RASH eggs Allergy (Intermediate, Uncoded 04/29/25 10:03) abdominal pian Medication List - Last Reconciled 04/29/25 by Shahida Haines MD albuterol sulfate 90 mcg/actuation 2 puffs inhalation Q4-6H PRN 30 days cetirizine 10 mg PO DAILY PRN cyclobenzaprine 10 mg PO TID PRN fluticasone propionate 50 mcg/actuation (Flonase Allergy Relief) 1 spray intranasal DAILY levonorgestrel (Mirena) 0 device intrauterine montelukast 10 mg PO BEDTIME 30 days Do you need a note to return to daycare/school/sports/work: No HPI HPI Asthma: Details: 39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 She is being treated for allergic rhinitis/bronchial asthma. Symptoms are well controlled as long as she takes montelukast 10 mg daily and use albuterol only p.r.n.. In the last 6 months has had no acute exacerbation. [facility] Medical History IUD (intrauterine device) in place Asthma Elevated BP without diagnosis of hypertension Obesity Adenomyosis of uterus Obesity Asthma Anemia Surgical History History of abdominoplasty History of tubal ligation Family History Mother Diabetes High cholesterol Hypertension Father No problems noted. 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 Cognitive needs: No Hearing needs: No Vision needs: Yes Female Reproductive History Menstrual Age of Menarche: 13 Review of Systems Const All systems reviewed & are unremarkable except as noted in HPI and below Eyes Reports no additional complaints ENT Reports nasal congestion and Reports nasal discharge Card Reports no additional complaints Resp Reports as per HPI GI Reports no additional complaints Reports no additional complaints Musc Reports no additional complaints Skin/Breast Reports system reviewed and no additional complaints, except as documented Neuro Reports no additional complaints Psych Reports no additional complaints Physical Exam Vital Signs: Last Vital Signs Pulse 78 04/29/25 09:38 BP 102/68 04/29/25 09:38 Pulse Ox 98 04/29/25 09:38 Oxygen Delivery Method Room Air 04/29/25 09:38 BMI result Body Mass Index 29.9 Const General: healthy appearing, comfortable, no acute distress, alert and awake Orientation/consciousness: patient oriented x3 HEENT Head: Yes normal to inspection General nose exam: No nasal polyps present, No nasal discharge present and Abnormal mucous membranes and turbinates present (As moderate hypertrophy of the inferior and middle turbinates) Face and sinus: Yes sinuses nontender Mouth: oropharynx normal Throat: Yes posterior oropharynx normal Eyes General: appearance normal, both eyes and all related structures Neck Neck: Yes normal visual inspection, Yes no lymphadenopathy, Yes trachea midline and Yes no JVD Thyroid: Thyroid normal Chest Other: INSPECTION AND PALPATION OF THE CHEST, does not indicate any tenderness or any abnormal duty on auscultation, related to the area back pain which she points out. The pain seems to be more muscular in nature. Chest palpation & inspection: normal inspection of the chest, normal palpation of entire chest wall and no tenderness Resp Other: Percussion note resonant. Has good breath sounds on both sides. There are no wheezes or crepitations. Cardio Palpation: normal PMI Rate: regular rate Rhythm: regular rhythm Heart sounds: no gallops and no murmurs Peripheral pulses: Peripheral pulses 2+ throughout GI Palpation (GI): Soft to palpation, nontender, No hepatosplenomegaly present and no masses Auscultation: normal bowel sounds Back/Spine/Pelvis Thoracic/Lumbar Spine: thoracic and lumbar spine normal to inspection Skin General skin exam: no rashes or lesions noted Neuro General: patient oriented x3 and no focal motor deficits Cranial nerves: Yes CN's II-XII intact bilaterally Extrem General: Yes normal to inspection, Yes no clubbing, cyanosis or edema and Yes no calf tenderness Psych Appearance: grossly normal and well kempt Speech and movement: Normal speech and movement present Assessment & Plan Assessment & Plan (1) Asthma: Comment: Bronchial asthma, mild to moderate, persistent, most likely allergic. One of the main triggers is domestic CATs . Code(s): J45.909 - Unspecified asthma, uncomplicated Category: Medical Plan: Continue to use Montelukast 10 mg daily Use albuterol HFA 2 puffs Q 4-6 hours only p.r.n. (2) Allergic rhinitis: Comment: Chronic allergic rhinitis, around the year , worsening with seasonal changes. Well controlled at this time. Code(s): J30.9 - Allergic rhinitis, unspecified Category: Medical Plan: Montelukast 10 mg p.o. daily Flonase 1 spray in each nostril daily Cetirizine 10 mg once a day p.r.n. Medications: Refilled montelukast 10 mg PO BEDTIME 30 tabs 5RF ALLERGIC RHINITIS 30 days Coding Level of Care Code Est Pt Level 3 (34339) Diagnoses Asthma J45.909 Allergic rhinitis J30.9
== END 2025-04-29 10:03 | disposition home or self-care (01) ==
LOC: HO.HPS 09:32
PROVIDERS: PCP Internal Medicine; Visit Provider Internal Medicine
DX: J45.909 Unspecified asthma, uncomplicated (principal); J30.9 Allergic rhinitis, unspecified
CPT/HCPCS: 99213

== ENCOUNTER → 2025-04-29 09:31 | Outpatient (BNVA) | payer BC, SELFPAY | PROVIDERS: PCP Internal Medicine; Visit Provider Internal Medicine ==

== ENCOUNTER 2025-10-26 09:43 | Outpatient (AMB) | payer BC, SELFPAY ==
--- NOTE | 2025-10-26 09:51 | MHC.OFFVIS ---
Vital Signs 10/26/25 09:52 Height 5 ft 5 in Weight 181 lb 14.102 oz BMI 30.3 BP 110/60 Blood Pressure Location Lt brachial Position Sitting Pulse 74 Pulse Source Pulse Oximeter Pulse Oximetry (%) 99 Oxygen Delivery Method Room Air Intake Visit Reasons: Asthma Intake Note: pt is here for follow up and states she is feeling good Crystal Growing Technician Required: No Pile Driving Supervisor: Pile Driving Supervisor offered & declined Allergies eggplant (EGGPLANT) Allergy (Severe, Verified 10/26/25 09:58) HIVES latex (LATEX) Allergy (Intermediate, Verified 10/26/25 09:58) RASH eggs Allergy (Intermediate, Uncoded 10/26/25 09:58) abdominal pian Medication List - Last Reconciled 10/26/25 by Shahida Haines MD albuterol sulfate 90 mcg/actuation 2 puffs inhalation Q4-6H PRN 30 days cetirizine 10 mg PO DAILY PRN fluticasone propionate 50 mcg/actuation (Flonase Allergy Relief) 1 spray intranasal DAILY montelukast 10 mg PO BEDTIME 30 days Do you need a note to return to daycare/school/sports/work: No HPI HPI Asthma: Details: Lora is here for 6 months follow-up. Allergic rhinitis as well as bronchial asthma has remained well controlled without any acute exacerbation. She has 4 cats but tries to keep them in the garage. With the use of antihistaminic regimen and also keeping the cats away from the bedrooms, her allergy problem is much less. She hardly needs to use any rescue inhaler. [facility] Medical History IUD (intrauterine device) in place Asthma Elevated BP without diagnosis of hypertension Obesity Adenomyosis of uterus Obesity Asthma Anemia Surgical History History of abdominoplasty History of tubal ligation Family History Mother Diabetes High cholesterol Hypertension Father No problems noted. 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 Cognitive needs: No Hearing needs: No Vision needs: Yes Female Reproductive History Menstrual Age of Menarche: 13 Review of Systems Const All systems reviewed & are unremarkable except as noted in HPI and below Eyes Reports no additional complaints ENT Reports nasal congestion and Reports nasal discharge Card Reports no additional complaints Resp Reports as per HPI GI Reports no additional complaints Reports no additional complaints Musc Reports no additional complaints Skin/Breast Reports system reviewed and no additional complaints, except as documented Neuro Reports no additional complaints Psych Reports no additional complaints Physical Exam Vital Signs: Last Vital Signs Pulse 74 10/26/25 09:52 BP 110/60 10/26/25 09:52 Pulse Ox 99 10/26/25 09:52 Oxygen Delivery Method Room Air 10/26/25 09:52 BMI result Body Mass Index 30.3 Const General: healthy appearing, comfortable, no acute distress, alert and awake Orientation/consciousness: patient oriented x3 HEENT Head: Yes normal to inspection General nose exam: No nasal polyps present, No nasal discharge present and Abnormal mucous membranes and turbinates present (As moderate hypertrophy of the inferior and middle turbinates) Face and sinus: Yes sinuses nontender Mouth: oropharynx normal Throat: Yes posterior oropharynx normal Eyes General: appearance normal, both eyes and all related structures Neck Neck: Yes normal visual inspection, Yes no lymphadenopathy, Yes trachea midline and Yes no JVD Thyroid: Thyroid normal Chest Other: INSPECTION AND PALPATION OF THE CHEST, does not indicate any tenderness or any abnormal duty on auscultation, related to the area back pain which she points out. The pain seems to be more muscular in nature. Chest palpation & inspection: normal inspection of the chest, normal palpation of entire chest wall and no tenderness Resp Other: Percussion note resonant. Has good breath sounds on both sides. There are no wheezes or crepitations. Cardio Palpation: normal PMI Rate: regular rate Rhythm: regular rhythm Heart sounds: no gallops and no murmurs Peripheral pulses: Peripheral pulses 2+ throughout GI Palpation (GI): Soft to palpation, nontender, No hepatosplenomegaly present and no masses Auscultation: normal bowel sounds Back/Spine/Pelvis Thoracic/Lumbar Spine: thoracic and lumbar spine normal to inspection Skin General skin exam: no rashes or lesions noted Neuro General: patient oriented x3 and no focal motor deficits Cranial nerves: Yes CN's II-XII intact bilaterally Extrem General: Yes normal to inspection, Yes no clubbing, cyanosis or edema and Yes no calf tenderness Psych Appearance: grossly normal and well kempt Speech and movement: Normal speech and movement present Results Reviewed Results Reviewed: SPIROMETRY 05/11/24 10/26/25 FVC 83 % 89 FEV1 74 % 76 FEF 25-75 56 % 43 Assessment & Plan Assessment & Plan (1) Asthma: Comment: Bronchial asthma, mild to moderate, persistent, most likely allergic. One of the main triggers is domestic CATs . As she is keeping distance from the cats and keeping them out of the bedroom her allergy problem is much less. Breathing status is stable and controlled . Code(s): J45.909 - Unspecified asthma, uncomplicated Category: Medical Plan: Continue to use montelukast 10 mg daily Albuterol HFA 2 puffs Q 4-6 hours only p.r.n. (2) Allergic rhinitis: Comment: Chronic allergic rhinitis, around the year , worsening with seasonal changes. Well controlled at this time. Code(s): J30.9 - Allergic rhinitis, unspecified Category: Medical Plan: Continue using montelukast 10 mg daily and also Flonase-51 spray in each nostril b.i.d. as well as cetirizine 10 mg once a day only p.r.n. Coding Level of Care Code Est Pt Level 3 (24131) Diagnoses Asthma J45.909 Allergic rhinitis J30.9
[2025-10-26 09:52] VITALS: BP 110/60; PULSE 74; O2SAT 99; BMI 30.3
== END 2025-10-26 10:18 | disposition home or self-care (01) ==
LOC: HO.HPS 09:44
PROVIDERS: PCP Internal Medicine; Visit Provider Internal Medicine
DX: J45.909 Unspecified asthma, uncomplicated (principal); J30.9 Allergic rhinitis, unspecified
CPT/HCPCS: 94010; 99213

== ENCOUNTER → 2025-10-26 09:43 | Outpatient (BNVA) | payer BC, SELFPAY | PROVIDERS: PCP Internal Medicine; Visit Provider Internal Medicine | DX: J45.40 Moderate persistent asthma, uncomplicated (principal); Z87.891 Personal history of nicotine dependence; Z79.899 Other long term (current) drug therapy | CPT/HCPCS: 94010 ==